=== PATIENT | female | born 1970 | race American Indian/Alaskan Native ===

== ENCOUNTER 2017-01-06 20:41 | Emergency (ER) | payer BC ==
[2017-01-06 22:23] VITALS: BP 148/96
--- NOTE | 2017-01-06 22:58 | Emergency Department Report ---
HPI - General Chief Complaint: Pain General Time Seen by Provider: 01/06/17 22:11 - HPI HPI: The patient's for 46 yo female whom presents for evaluation of mental health. The patient states that she has experienced progressive sadness sleep disturbance for the past 3 months. For the past one day she reports severe and constant sadness, and associated with tearfulness and concentration difficulty. The patient denies fever, headache, unexplained weight loss or weight gain, heat or cold intolerance, skin, hair, or nail changes, neuro deficits, suicidal ideation, homicidal ideations, or auditory or visual hallucinations. ED Past Medical Hx - Past Medical History Previous Medical History?: Yes Hx Asthma: Yes Additional medical history: uterine cyst - Surgical History Past Surgical History?: Yes Additional Surgical History: Partial hysterectomy - Social History Smoking Status: Never Smoker Substance Use Type: Alcohol - Medications Home Medications: Home Medications Medication Instructions Recorded Confirmed Last Taken Type Amoxicillin/K Clav Tab [Augmentin 1 tab PO BID #20 tablet 04/20/14 Unknown Rx 875MG] HYDROcodone/APAP 7.5-325 [[place] 1 each PO Q6HR PRN #20 tablet 04/20/14 Unknown Rx 7.5/325 mg] Ibuprofen [Motrin] 600 mg PO Q8H PRN #50 tablet 04/20/14 Unknown Rx Loratadine [Claritin] 10 mg PO DAILY #30 tablet 04/20/14 Unknown Rx predniSONE [Deltasone] 50 mg PO QDAY #5 tab 04/20/14 Unknown Rx Acetaminophen/Codeine 1 tab PO Q6H PRN #12 tab 09/25/14 Unknown Rx [Acetaminophen-Codeine #3 TAB] Ondansetron [Zofran Odt] 4 mg PO Q6H #10 tab.rapdis 09/25/14 Unknown Rx predniSONE [Deltasone] 20 mg PO QDAY #4 tab 09/04/15 Unknown Rx Clindamycin [Clindamycin CAP] 600 mg PO BID #14 capsule 05/23/16 Unknown Rx traMADol [Ultram] 50 mg PO Q6HR PRN #20 tablet 05/23/16 Unknown Rx ED Review of Systems ROS: Stated complaint: STRESS Other details as noted in HPI Constitutional: denies: fever ENT: denies: throat or neck pain Respiratory: denies: cough, shortness of breath Cardiovascular: denies: chest pain Endocrine: denies unexplained weight loss or gain Gastrointestinal: denies: abdominal pain, nausea Genitourinary: denies: dysuria Musculoskeletal: denies: leg swelling Skin: denies: rash Neurological: denies: headache Hematological/Lymphatic: denies: easy bleeding or easy bruising Psych: reports sadness/insomnia Physical Exam - Physical Exam Vital Signs: Vital Signs 01/06/17 01/06/17 21:55 22:24 Temperature 98.0 F Pulse Rate 96 H Respiratory 18 18 Rate Blood Pressure 148/96 O2 Sat by Pulse 98 Oximetry Physical Exam: General: well-nourished, well-developed, no acute distress Head: Normocephalic, atraumatic Eyes: normal sclera ENT: Mucous membranes are pink and moist Neck: trachea midline, neck supple, No neck stiffness, no cervical adenopathy Respiratory: Breath sounds equal bilaterally, no wheezing, rales, or rhonchi Cardio: S1 and S2 present, no murmurs, rubs, gallops, capillary refill is brisk Abdomen: Normoactive bowel sounds, soft abdomen, no tenderness Musc: No pitting edema Skin: No rash Neuro: no facial drooping, normal speech Psych: Depressed mood, patient tearful, normal affect, normal insight, no cognitive deficits, no hallucinations ED Course Vital Signs 01/06/17 01/06/17 21:55 22:24 Temperature 98.0 F Pulse Rate 96 H Respiratory 18 18 Rate Blood Pressure 148/96 O2 Sat by Pulse 98 Oximetry ED Medical Decision Making - Lab Data Result diagrams: 01/06/17 22:48 01/06/17 22:48 - Medical Decision Making The patient was seen and examined by myself. The patient is placed on a monitoring engineer and continuous pulse ox. On initial evaluation, the patient was found to be in no distress. Labs are obtained. Lab results are grossly unremarkable. The patient is medically clear. Mental health is consulted. Mental health evaluates the patient and agrees that the patient negative for any findings concerning for risk of harm to herself or others. The patient is given resources for treatment of her depression. The patient is stable for discharge with outpatient follow-up. The patient is given follow-up and return instructions. The patient expressed understanding and agreed with the plan. The patient is discharged in stable condition. Critical care attestation.: If time is entered above; I have spent that time in minutes in the direct care of this critically ill patient, excluding procedure time. ED Disposition Clinical Impression: Depressed Qualifiers: Depression Type: unspecified Qualified Code(s): F32.9 - Major depressive disorder, single episode, unspecified Disposition: DISCHARGED TO HOME OR SELFCARE Is pt being admited?: No Does the pt Need Aspirin: No Condition: Stable Instructions: Mood Disorders (ED), Depression (ED), Suicide Prevention for Adults (ED) Referrals: PRIMARY CARE, [Primary Care Provider] - 3-5 Days [facility] [Outside] - 3-5 Days Time of Disposition: 22:57
[2017-01-06 23:04] LABS: Hematocrit 40.4 % (30.3-42.9); Hemoglobin 13.3 gm/dl (10.1-14.3); Mean Corpuscular HGB Conc 33 % (30-34); Mean Corpuscular Hemoglobin 32 pg (28-32); Mean Corpuscular Volume 97 fl (79-97); Platelet Count 191 K/mm3 (140-440); Red Blood Count 4.18 M/mm3 (3.65-5.03); Red Cell Distribution Width 13.3 % (13.2-15.2); White Blood Count 5.1 K/mm3 (4.5-11.0)
[2017-01-06 23:25] LABS: Anion Gap 21 mmol/L; BUN/Creatinine Ratio 12.22; Blood Urea Nitrogen 11 mg/dL (7-17); Calcium 8.8 mg/dL (8.4-10.2); Carbon Dioxide 21 mmol/L (22-30); Chloride 99.6 mmol/L (98-107); Glucose 101 mg/dL (65-100); Potassium 3.6 mmol/L (3.6-5.0); Sodium 138 mmol/L (137-145)
[2017-01-06 23:42] LABS: Urine Drugs of Abuse Note Disclamer
== END 2017-01-07 00:58 | disposition home or self-care (01) ==
LOC: EEVIPCON 20:41 → ED 20:41
DX: F32.9 Major depressive disorder, single episode, unspecified (principal); J45.909 Unspecified asthma, uncomplicated
CPT/HCPCS: 36415; 80048; 80307; 84439; 84443; 84703; 85027; 99283; G0480; 80320

== ENCOUNTER 2017-02-24 07:12 | Emergency (ER) | payer BC ==
[2017-02-24 07:33] VITALS: BP 157/85
--- NOTE | 2017-02-24 08:35 | Emergency Department Report ---
HPI - General Chief Complaint: Extremity Injury, Upper Time Seen by Provider: 02/24/17 08:20 - HPI HPI: This is a 46-year-old female presents to the ED complaining of left shoulder back forearm pain 1 month. She said about a month ago she was lifting a heavy patient and fell she injured her arm patient states during that time she had intermittent 10 throbbing, aching type pain on her back showed her to forearm. Patient states she has an appointment with Dr. Miner her primary care doctor on the because she was evidence pain with movement. She denies fevers/chills/nausea/vomiting/recent trauma to the arms/S of breath/ chest pain/headache. ED Past Medical Hx - Past Medical History Previous Medical History?: Yes Hx Asthma: Yes Additional medical history: uterine cyst - Surgical History Past Surgical History?: Yes Additional Surgical History: Partial hysterectomy - Social History Smoking Status: Current Every Day Smoker Substance Use Type: Alcohol, Prescribed - Medications Home Medications: Home Medications Medication Instructions Recorded Confirmed Last Taken Type Cyclobenzaprine [Flexeril] 10 mg PO QHS PRN #30 tablet 02/24/17 Unknown Rx Naproxen [Naprosyn] 500 mg PO BID #30 tablet 02/24/17 Unknown Rx ED Review of Systems ROS: Stated complaint: LFT ARM PAIN Other details as noted in HPI Constitutional: denies: chills, fever Eyes: denies: eye pain, eye discharge, vision change ENT: denies: ear pain, throat pain Respiratory: denies: cough, shortness of breath, wheezing Cardiovascular: denies: chest pain, palpitations Endocrine: no symptoms reported Gastrointestinal: denies: abdominal pain, nausea, diarrhea Genitourinary: denies: urgency, dysuria, discharge Musculoskeletal: denies: back pain, joint swelling, arthralgia Skin: denies: rash, lesions Neurological: denies: headache, weakness, paresthesias Psychiatric: denies: anxiety, depression Hematological/Lymphatic: denies: easy bleeding, easy bruising Physical Exam - Physical Exam Vital Signs: Vital Signs 02/24/17 07:29 Temperature 98.3 F Pulse Rate 82 Respiratory 18 Rate Blood Pressure 157/85 O2 Sat by Pulse 100 Oximetry Physical Exam: GENERAL: Alert and oriented x3, no apparent distress, Normal Gait, atraumatic. HEAD: Head is normocephalic and a-traumatic. NECK: Supple. Non edematous, No carotid bruits. No lymphadenopathy or thyromegaly. No C-spine tenderness LUNGS: Symetrical with respiration, No wheezing, no rales or crackles, CTAB. HEART: S1, S2 present, regular rate and rhythm without murmur, no rubs, no gallops. ABDOMEN: No organomegaly was noted,Positive bowel sounds, soft, and non- distended. . Nontender to palpation on all Quadrants, NO CVA tenderness. EXTREMITIES/MUSCULOSKELETAL: No cyanosis, clubbing, rash, lesions or edema. Full ROM bilaterally. UE Pulses 2+ bilaterally. UE 5+ strength bilaterally, tenderness to palpation of the left trapezius muscle. Full range of motion of the left shoulder and arm. NEUROLOGIC: No focal Deficit, Cranial nerves II through XII are grossly intact. No loss of sensation, PSYCHIATRIC: Mood is congruent with affect, denies suicidal or homicidal ideations. SKIN: Warm and dry, No lesions, No ulceration or induration present. ED Course Vital Signs 02/24/17 07:29 Temperature 98.3 F Pulse Rate 82 Respiratory 18 Rate Blood Pressure 157/85 O2 Sat by Pulse 100 Oximetry ED Medical Decision Making - Medical Decision Making 46-year-old female presents to ED with shoulder strain ED course: Discussed the patient proper rest and heat therapy to shoulder that muscle. Discussed with patient no fracture or dislocation noted. Discussed the patient to keep appointment with Dr. Miner. Discussed to take muscle relaxants and discussed drowsy drowsy effect. Vital signs are normal patient is in no acute or respiratory distress. Patient states she understands and will comply to follow up Critical care attestation.: If time is entered above; I have spent that time in minutes in the direct care of this critically ill patient, excluding procedure time. ED Disposition Clinical Impression: Strain of left shoulder Qualifiers: Encounter type: initial encounter Qualified Code(s): S46.912A - Strain of unspecified muscle, fascia and tendon at shoulder and upper arm level, left arm , initial encounter Disposition: DISCHARGED TO HOME OR SELFCARE Is pt being admited?: No Does the pt Need Aspirin: No Condition: Stable Instructions: Trigger Point Pain (ED), Musculoskeletal Pain (ED), Heat Pack Application (ED) Prescriptions: Cyclobenzaprine [Flexeril] 10 mg PO QHS PRN #30 tablet PRN Reason: Muscle Spasm Naproxen [Naprosyn] 500 mg PO BID #30 tablet Referrals: PRIMARY CARE, [Primary Care Provider] - 3-5 Days Forms: Accompanied Note, Work/School Release Form(ED) Time of Disposition: 09:05
== END 2017-02-24 09:31 | disposition home or self-care (01) ==
LOC: ED 07:12
DX: S46.912A Strain of unspecified muscle, fascia and tendon at shoulder and upper arm level, left arm, initial encounter (principal); J45.909 Unspecified asthma, uncomplicated; F17.200 Nicotine dependence, unspecified, uncomplicated; X50.0XXA Overexertion from strenuous movement or load, initial encounter; Y93.89 Activity, other specified; Y99.9 Unspecified external cause status; Y92.89 Other specified places as the place of occurrence of the external cause
CPT/HCPCS: 99282

== ENCOUNTER 2017-06-09 00:31 | Emergency (ER) | payer BC ==
[2017-06-09 01:22] VITALS: BP 130/79
[2017-06-09] MEDS ORDERED: ZOFRAN ONE (01:58)
[2017-06-09] MEDS ORDERED: MORPHINE ONE (01:59)
--- NOTE | 2017-06-09 02:00 | XRay Report ---
FINAL REPORT PROCEDURE: XR ANKLE 3+V LT TECHNIQUE: LEFT ankle radiographs, AP, lateral, and oblique views. CPT 55660 HISTORY: Left ankle swollen after fall COMPARISON: No prior studies are available for comparison. FINDINGS: Fracture (s) and/or Dislocation(s): There is an oblique fracture through the distal fibula. The remaining osseous structures appear intact.. Alignment: Normal. Joint space(s): Normal. Soft tissues: Mild soft tissue swelling. Bone mineralization: Normal. Foreign bodies: None. Calcaneal spurring: Small inferior calcaneal spur. IMPRESSION: Slightly impacted oblique fracture through the distal fibula. There is associated mild soft tissue swelling..
--- NOTE | 2017-06-09 02:05 | XRay Report ---
FINAL REPORT PROCEDURE: XR FOOT 3+V LT TECHNIQUE: LEFT foot radiographs, AP, lateral, and oblique views. CPT 62711 HISTORY: Left ankle/foot swollen after fall COMPARISON: No prior studies are available for comparison. FINDINGS: Fracture (s) and/or Dislocation(s): There is a impacted oblique fracture through the distal fibula. The remaining osseous structures are intact without fracture or dislocation.. Alignment: Normal . Joint space(s): Normal . Soft tissues: Mild soft tissue swelling over the ankle.. Bone mineralization: Normal . Foreign bodies: None . Calcaneal spurring: Small inferior calcaneal spur. IMPRESSION: Impacted oblique fracture through the distal fibula. There is associated soft tissue swelling. The remaining osseous structures are intact..
[2017-06-09] MEDS ORDERED: ZOFRAN IV ONE (02:38)
[2017-06-09] MEDS ORDERED: MORPHINE IV ONE ×2 (02:38→03:45)
[2017-06-09] MEDS ORDERED: NORCO 10/325 PO ONE (03:17)
[2017-06-09] MEDS ORDERED: FLEXERIL PO ONE (03:18)
--- NOTE | 2017-06-09 03:20 | Emergency Department Report ---
ED Lower Extremity HPI - General Chief Complaint: Extremity Injury, Lower Stated Complaint: LT ANKLE INJURY Source: patient, EMS Mode of arrival: Stretcher Limitations: No Limitations - History of Present Illness Initial Comments: 46 year old female presents to ED with left sided ankle pain after mechanical fall. patient is stable, neurologically intact and in no acute distress. MD Complaint: ankle injury -: Sudden Injury: Ankle: Left Place: home Severity: moderate Worsens With: weight bearing, movement Context: fall Associated Symptoms: swelling, unable to bear weight. denies: numbness, tingling - Related Data Previous Rx's Medication Instructions Recorded Last Taken Type Cyclobenzaprine [Flexeril] 10 mg PO QHS PRN #30 tablet 02/24/17 Unknown Rx Naproxen [Naprosyn] 500 mg PO BID #30 tablet 02/24/17 Unknown Rx HYDROcodone/APAP 5-325 [[place] 1 each PO Q6HR #20 tablet 06/09/17 Unknown Rx 5/325] Ibuprofen [Motrin] 800 mg PO Q8HR #15 tablet 06/09/17 Unknown Rx methOCARBAMOL [Robaxin TAB] 500 mg PO TID #15 tab 06/09/17 Unknown Rx Allergies Allergy/AdvReac Type Severity Reaction Status Date / Time erythromycin base Allergy Rash Verified 02/24/17 07:27 tramadol Allergy Rash Verified 02/24/17 07:27 ED Review of Systems ROS: Stated complaint: LT ANKLE INJURY Other details as noted in HPI Constitutional: denies: chills, fever Eyes: denies: eye pain, eye discharge, vision change ENT: denies: ear pain, throat pain Respiratory: denies: cough, shortness of breath, wheezing Cardiovascular: denies: chest pain, palpitations Endocrine: no symptoms reported Gastrointestinal: denies: abdominal pain, nausea, diarrhea Genitourinary: denies: urgency, dysuria, discharge Musculoskeletal: joint swelling, arthralgia. denies: back pain Skin: denies: rash, lesions Neurological: denies: headache, weakness, numbness, paresthesias, confusion, vertigo Psychiatric: denies: anxiety, depression Hematological/Lymphatic: denies: easy bleeding, easy bruising ED Past Medical Hx - Past Medical History Previous Medical History?: Yes Hx Asthma: Yes Additional medical history: uterine cyst - Surgical History Additional Surgical History: Partial hysterectomy - Social History Smoking Status: Current Some Day Smoker - Medications Home Medications: Home Medications Medication Instructions Recorded Confirmed Last Taken Type Cyclobenzaprine [Flexeril] 10 mg PO QHS PRN #30 tablet 02/24/17 Unknown Rx Naproxen [Naprosyn] 500 mg PO BID #30 tablet 02/24/17 Unknown Rx HYDROcodone/APAP 5-325 [[place] 1 each PO Q6HR #20 tablet 06/09/17 Unknown Rx 5/325] Ibuprofen [Motrin] 800 mg PO Q8HR #15 tablet 06/09/17 Unknown Rx methOCARBAMOL [Robaxin TAB] 500 mg PO TID #15 tab 06/09/17 Unknown Rx ED Physical Exam - General Limitations: No Limitations General appearance: alert, in no apparent distress - Head Head exam: Present: atraumatic, normocephalic - Eye Eye exam: Present: normal appearance - ENT ENT exam: Present: mucous membranes moist - Neck Neck exam: Present: normal inspection - Respiratory Respiratory exam: Present: normal lung sounds bilaterally. Absent: respiratory distress, wheezes - Cardiovascular Cardiovascular Exam: Present: regular rate, normal rhythm. Absent: systolic murmur, diastolic murmur, rubs, gallop - GI/Abdominal GI/Abdominal exam: Present: soft, normal bowel sounds. Absent: distended, tenderness, guarding - Extremities Exam Extremities exam: Present: normal inspection - Expanded Lower Extremity Exam Left Hip exam: Present: normal inspection, full ROM Upper Leg exam: Present: normal inspection, full ROM Knee exam: Present: normal inspection, full ROM Lower Leg exam: Present: tenderness (distal) Ankle exam: Present: tenderness, swelling Foot/Toe exam: Present: tenderness Neuro vascular tendon exam: Present: no vascular compromise. Absent: abnormal cap refill Gait: Positive: unable to bear weight - Back Exam Back exam: Present: normal inspection. Absent: tenderness - Neurological Exam Neurological exam: Present: alert, oriented X3 - Psychiatric Psychiatric exam: Present: normal affect, normal mood - Skin Skin exam: Present: warm, dry, intact, normal color. Absent: rash ED Course Vital Signs 06/09/17 01:17 Temperature 98.6 F Pulse Rate 79 Respiratory 18 Rate Blood Pressure 130/79 O2 Sat by Pulse 99 Oximetry ED Lower Extremity MDM - Radiology Data Radiology results: report reviewed XR left ankle/foot Impacted oblique fracture through the distal fibula. There is associated soft tissue swelling. The remaining osseous structures are intact. - Medical Decision Making 46 year old female presents to ED with left ankle pain. patient has xray positive for distal fibula fracture. patient has been medicated with pain medication and short leg ankle splint applied. patient understands and agrees to follow up with Dr. Corrigan tomorrow once his office opens. Critical care attestation.: If time is entered above; I have spent that time in minutes in the direct care of this critically ill patient, excluding procedure time. ED Disposition Clinical Impression: Ankle fracture, left Qualifiers: Encounter type: initial encounter Fracture type: closed Qualified Code(s): S82.892A - Other fracture of left lower leg, initial encounter for closed fracture Disposition: - TO HOME OR SELFCARE Is pt being admited?: No Does the pt Need Aspirin: No Condition: Stable Instructions: Ankle Fracture (ED) Prescriptions: HYDROcodone/APAP 5-325 [[place] 5/325] 1 each PO Q6HR #20 tablet Ibuprofen [Motrin] 800 mg PO Q8HR #15 tablet methOCARBAMOL [Robaxin TAB] 500 mg PO TID #15 tab Referrals: HOMA CORRIGAN MD [Staff Physician] - 24 Hours Forms: Work/School Release Form(ED)
[2017-06-09] MEDS ORDERED: NORCO 10/325 ONE (04:39)
[2017-06-09] MEDS ORDERED: FLEXERIL ONE (04:39)
== END 2017-06-09 04:15 | disposition home or self-care (01) ==
LOC: EEVIPCON 00:31 → ED 00:31
DX: S82.892A Other fracture of left lower leg, initial encounter for closed fracture (principal); J45.909 Unspecified asthma, uncomplicated; F17.200 Nicotine dependence, unspecified, uncomplicated; Z90.711 Acquired absence of uterus with remaining cervical stump; Z88.8 Allergy status to other drugs, medicaments and biological substances; W18.39XA Other fall on same level, initial encounter; Y93.89 Activity, other specified; Y99.8 Other external cause status; Y92.89 Other specified places as the place of occurrence of the external cause
CPT/HCPCS: 29515; 73610; 73630; 96374; 96375; 96376; 99284; J2270; J2405

== ENCOUNTER 2017-07-08 14:23 | Outpatient (CLI) | payer BC ==
--- NOTE | 2017-07-08 16:00 | XRay Report ---
Left ankle: Trauma, pain. There is generalized swelling of the soft tissues of the distal leg extending into the proximal foot. The swelling is primarily laterally. There is no black fracture through the distal shaft of the fibula with slight offset and separation. The tibiotalar alignment and joint appear unremarkable. Impression: Fibula fracture.
== END 2017-07-08 14:24 | disposition home or self-care (01) ==
LOC: XRAY 14:23
PROVIDERS: ATTEND Orthopaedic Surgery
DX: S82.402A Unspecified fracture of shaft of left fibula, initial encounter for closed fracture (principal); J45.909 Unspecified asthma, uncomplicated; F17.200 Nicotine dependence, unspecified, uncomplicated; X58.XXXA Exposure to other specified factors, initial encounter; Y93.89 Activity, other specified; Y92.89 Other specified places as the place of occurrence of the external cause; Y99.8 Other external cause status

== ENCOUNTER 2017-07-20 12:56 | Emergency (ER) | payer BC ==
[2017-07-20 13:24] VITALS: BP 131/89
--- NOTE | 2017-07-20 14:29 | Emergency Department Report ---
ED Lower Extremity HPI - General Chief Complaint: Extremity Injury, Lower Stated Complaint: ANKLE PAIN Time Seen by Provider: 07/20/17 13:39 Source: patient, family Mode of arrival: Wheelchair Limitations: Physical Limitation - History of Present Illness Initial Comments: This is a 47-year-old female nontoxic, well nourished in appearance, no acute signs of distress presents to the ED complaining of left ankle pain. Patient stated on 07/29/2017 patient was diagnosed with a fibular fracture and received a splint in the ED and then follow-up with Dr. Corrigan which he put on a hard cast. Patient states weeks ago but Shekhar has removed cast and patient still having pain. Patient presents to the ED if she is still in pain and wants pain control. Patient denies any new trauma to the region. Denies any swelling, numbness, tingling, fever, chills, nausea, vomiting chest pain and shortness of breath. Patient stated she still has pain while ambulating. Patient denies decreased range of motion. Patient states allergies to erythromycin and tramadol. Past medical history includes asthma. MD Complaint: leg injury (hx of fibula fracture) -: Gradual, month(s) (1) Injury: Leg: Left Severity: mild Severity scale (0 -10): 6 Improves With: nothing Worsens With: nothing Context: fall Associated Symptoms: able to partially bear weight, ambulatory. denies: snap/ pop sensation, swelling, numbness, tingling, unable to bear weight - Related Data Previous Rx's Medication Instructions Recorded Last Taken Type Cyclobenzaprine [Flexeril] 10 mg PO QHS PRN #30 tablet 02/24/17 Unknown Rx Naproxen [Naprosyn] 500 mg PO BID #30 tablet 02/24/17 Unknown Rx HYDROcodone/APAP 5-325 [[place] 1 each PO Q6HR #20 tablet 06/09/17 Unknown Rx 5/325] Ibuprofen [Motrin] 800 mg PO Q8HR #15 tablet 06/09/17 Unknown Rx methOCARBAMOL [Robaxin TAB] 500 mg PO TID #15 tab 06/09/17 Unknown Rx Ibuprofen [Motrin 600 MG tab] 600 mg PO Q8H PRN #30 tablet 07/20/17 Unknown Rx Allergies Allergy/AdvReac Type Severity Reaction Status Date / Time erythromycin base Allergy Rash Verified 02/24/17 07:27 tramadol Allergy Rash Verified 02/24/17 07:27 ED Review of Systems ROS: Stated complaint: ANKLE PAIN Other details as noted in HPI Constitutional: denies: chills, fever Eyes: denies: eye pain, eye discharge, vision change ENT: denies: ear pain, throat pain Respiratory: denies: cough, shortness of breath, wheezing Cardiovascular: denies: chest pain, palpitations Endocrine: no symptoms reported Gastrointestinal: denies: abdominal pain, nausea, diarrhea Genitourinary: denies: urgency, dysuria, discharge Musculoskeletal: denies: back pain, joint swelling, arthralgia Skin: denies: rash, lesions Neurological: denies: headache, weakness, paresthesias Psychiatric: denies: anxiety, depression Hematological/Lymphatic: denies: easy bleeding, easy bruising ED Past Medical Hx - Past Medical History Previous Medical History?: Yes Hx Asthma: Yes Additional medical history: uterine cyst, Left ankle injury - Surgical History Past Surgical History?: Yes Additional Surgical History: Partial hysterectomy - Social History Smoking Status: Never Smoker Substance Use Type: Alcohol, Prescribed - Medications Home Medications: Home Medications Medication Instructions Recorded Confirmed Last Taken Type Cyclobenzaprine [Flexeril] 10 mg PO QHS PRN #30 tablet 02/24/17 Unknown Rx Naproxen [Naprosyn] 500 mg PO BID #30 tablet 02/24/17 Unknown Rx HYDROcodone/APAP 5-325 [[place] 1 each PO Q6HR #20 tablet 06/09/17 Unknown Rx 5/325] Ibuprofen [Motrin] 800 mg PO Q8HR #15 tablet 06/09/17 Unknown Rx methOCARBAMOL [Robaxin TAB] 500 mg PO TID #15 tab 06/09/17 Unknown Rx Ibuprofen [Motrin 600 MG tab] 600 mg PO Q8H PRN #30 tablet 07/20/17 Unknown Rx ED Physical Exam - General Limitations: Physical Limitation General appearance: alert, in no apparent distress - Head Head exam: Present: atraumatic, normocephalic, normal inspection - Eye Eye exam: Present: normal appearance, PERRL, EOMI. Absent: scleral icterus, conjunctival injection, nystagmus, periorbital swelling, periorbital tenderness Pupils: Present: normal accommodation - ENT ENT exam: Present: normal exam, normal orophraynx, mucous membranes moist, TM's normal bilaterally, normal external ear exam - Neck Neck exam: Present: normal inspection, full ROM. Absent: tenderness, meningismus, lymphadenopathy, thyromegaly - Respiratory Respiratory exam: Present: normal lung sounds bilaterally. Absent: respiratory distress, wheezes, rales, rhonchi, stridor, chest wall tenderness, accessory muscle use, decreased breath sounds, prolonged expiratory - Cardiovascular Cardiovascular Exam: Present: regular rate, normal rhythm, normal heart sounds. Absent: systolic murmur, diastolic murmur, rubs, gallop - GI/Abdominal GI/Abdominal exam: Present: soft, normal bowel sounds. Absent: distended, tenderness, guarding, rebound, rigid, diminished bowel sounds - Rectal Rectal exam: Present: deferred - Extremities Exam Extremities exam: Present: normal inspection, full ROM, tenderness, normal capillary refill. Absent: pedal edema, joint swelling, calf tenderness - Expanded Lower Extremity Exam Left Hip exam: Present: normal inspection, full ROM Upper Leg exam: Present: normal inspection, full ROM Knee exam: Present: normal inspection, full ROM Lower Leg exam: Present: normal inspection, full ROM, tenderness. Absent: swelling, abrasion, laceration, deformity, crepidus, dislocation, erythema, palpable cord, Erika's sign Ankle exam: Present: normal inspection, full ROM, tenderness. Absent: swelling , abrasion, laceration, ecchymosis, deformity, crepidus, dislocation, erythema, anterior draw sign Foot/Toe exam: Present: normal inspection, full ROM. Absent: tenderness, swelling, abrasion, laceration, ecchymosis, deformity, crepidus, dislocation, erythema, amputation, puncture wound, foreign body, calcaneal tenderness, tenderness at base of 5th metatarsal, nail avulsion, subungual hematoma Neuro vascular tendon exam: Present: no vascular compromise. Absent: pulse deficit, abnormal cap refill, motor deficit, sensory deficit, tendon deficit, extremity cold to touch, pallor, abnormal 2-point discrimination, decreased fine /light touch, foot drop, peroneal nerve deficit, significant pain with passive ROM of distal joint Gait: Positive: observed and limited by pain - Back Exam Back exam: Present: normal inspection, full ROM. Absent: tenderness, CVA tenderness (R), CVA tenderness (L), muscle spasm, paraspinal tenderness, vertebral tenderness, rash noted - Neurological Exam Neurological exam: Present: alert, oriented X3, CN II-XII intact, normal gait, reflexes normal - Psychiatric Psychiatric exam: Present: normal affect, normal mood - Skin Skin exam: Present: warm, dry, intact, normal color. Absent: rash ED Course Vital Signs 07/20/17 07/20/17 13:19 14:40 Temperature 98.3 F 98.7 F Pulse Rate 92 H 89 Respiratory 16 20 Rate Blood Pressure 131/89 O2 Sat by Pulse 100 100 Oximetry - Reevaluation(s) Reevaluation #1: 07/20/17 14:32 Patient is speaking in full sentences with no signs of distress noted. Reevaluation #2: 07/20/17 16:10 Patient has been notified that I spoke to Dr. Corrigan and educated her and instructed her on the plan of care and discharge. - Consultations Consultation #1: 07/20/17 16:08 Dr. Corrigan has been consulted about patient xray results and stated he is aware of patient and stated he ordered cam ankle shoe but patient has stated she has not yet received it. Patient stated she is in the process of getting it done. I notified Dr. Corrigan if ankle stirrup is appropriate plan of care and discharged with crutches and said it is a appropriate plan of care and stated he does not want patient to be splinted again. ED Lower Extremity MDM - Medical Decision Making Fibular fracture. Patient is requesting for pain control. X-ray has obtained. Dictated by Radiologist with an old fracture of the fibula. Patient states that she did received hard cast by Dr. Corrigan in which it was removed by him as well. Patient came in with crutches. Patient received a Velcro ankle stirrup in the ED. Patient was instructed to follow-up with Dr. Corrigan in 3-5 days or if symptoms worsen and continue with its emergency room as soon as possible. [facility] indicates that Dr. Corrigan has prescribed her 30 of [place]. I instructed that patient has received it by Dr. Corrigan with enough that should last for couple of more days so she can f/u with him. Patient agrees to the plan of care and patient received Motrin in the ED as well as d/c. At time time of discharge, the patient does not seem toxic or ill in appearance. No acute signs of distress noted. Patient agrees to discharge treatment plan of care. No further questions noted by the patient. Critical care attestation.: If time is entered above; I have spent that time in minutes in the direct care of this critically ill patient, excluding procedure time. ED Disposition Clinical Impression: Fibula fracture Qualifiers: Encounter type: initial encounter Fibula location: lateral malleolus Fracture type: closed Fracture alignment: displaced Laterality: left Qualified Code(s): S82.62XA - Displaced fracture of lateral malleolus of left fibula, initial encounter for closed fracture Disposition: TO HOME OR SELFCARE Is pt being admited?: No Does the pt Need Aspirin: No Condition: Stable Instructions: Ibuprofen (By mouth), Crutch Instructions (ED), Leg Fracture (ED) , RICE Therapy (ED) Additional Instructions: Follow-up with Dr. Corrigan or another Orthopedic doctor in 3-5 days or if symptoms worsen and continue return to emergency room as soon as possible possible. Prescriptions: Ibuprofen [Motrin 600 MG tab] 600 mg PO Q8H PRN #30 tablet PRN Reason: Pain Referrals: PRIMARY CAREMD [Primary Care Provider] - 3-5 Days HOMA CORRIGAN MD [Staff Physician] - 3-5 Days [facility] [Outside] - 3-5 Days [facility] [Outside] - 3-5 Days
[2017-07-20] MEDS ORDERED: MOTRIN PO ONE (14:46)
--- NOTE | 2017-07-20 15:54 | XRay Report ---
FINAL REPORT PROCEDURE: XR ANKLE 3+V LT TECHNIQUE: Three views of the left ankle are obtained HISTORY: left ankle injury pain swelling COMPARISON: X-ray dated June 09, 2017 FINDINGS: There is a mildly displaced lateral malleolus fracture. It is unchanged since prior study. No widening of the ankle mortise is seen. Soft tissue swelling is seen in the ankle. Moderate size calcaneal plantar spur is seen. IMPRESSION: Mildly displaced lateral malleolus fracture is seen. No interval healing is seen.
== END 2017-07-20 16:24 | disposition home or self-care (01) ==
LOC: ED 12:56
DX: S82.62XG Displaced fracture of lateral malleolus of left fibula, subsequent encounter for closed fracture with delayed healing (principal); J45.909 Unspecified asthma, uncomplicated; Z88.8 Allergy status to other drugs, medicaments and biological substances; X58.XXXA Exposure to other specified factors, initial encounter; Y93.89 Activity, other specified; Y92.89 Other specified places as the place of occurrence of the external cause; Y99.8 Other external cause status

== ENCOUNTER 2017-11-26 03:53 | Emergency (ER) | payer BC ==
[2017-11-26 04:13] VITALS: BP 124/76
[2017-11-26] MEDS ORDERED: ULTRAM ONE (04:35)
[2017-11-26] MEDS ORDERED: ULTRAM PO ONE (04:47)
--- NOTE | 2017-11-26 05:24 | Emergency Department Report ---
HPI - General Chief Complaint: Extremity Problem,Nontraumatic Time Seen by Provider: 11/26/17 05:18 - HPI HPI: Patient is a 47-year-old female with no prior medical history who presents to ED complaining of continuous ankle pain from her ankle surgery in July of last day. 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 Patient states she is on her feet most of the day and doesn't think her ankle is healing appropriately. Patient states the left ankle is throbbing and aching and causing her his discomfort. Patient states that she had a fractured ankle that happened in May 2017 which was later operated on in July 2017. Patient states she has not had any re-injuries to the ankle. She denies fever/ chills/ nausea/vomiting/calf pain/shortness of breath/chest pain ED Past Medical Hx - Past Medical History Previous Medical History?: Yes Hx Hypertension: No Hx Asthma: Yes Hx HIV: No Additional medical history: uterine cyst, Left ankle injury - Surgical History Past Surgical History?: Yes Additional Surgical History: Partial hysterectomy - Social History Smoking Status: Never Smoker Substance Use Type: None - Medications Home Medications: Home Medications Medication Instructions Recorded Confirmed Last Taken Type Ibuprofen [Motrin] 800 mg PO PRN PRN 08/11/17 08/19/17 08/15/17 History Multivit-Min/FA/Lycopen/Lutein 1 each PO DAILY 08/11/17 08/11/17 08/18/17 History [Centrum Silver Tablet] Cyclobenzaprine [Flexeril 10 MG 10 mg PO QHS PRN #30 tablet 11/26/17 Unknown Rx TAB] HYDROcodone/APAP 5-325 [[place] 1 each PO Q6H PRN #12 tablet 11/26/17 Unknown Rx 5-325 mg TAB] ED Review of Systems ROS: Stated complaint: LT ANKLE PAIN Other details as noted in HPI Constitutional: denies: chills, fever Eyes: denies: eye pain, eye discharge, vision change ENT: denies: ear pain, throat pain Respiratory: denies: cough, shortness of breath, wheezing Cardiovascular: denies: chest pain, palpitations Endocrine: no symptoms reported Gastrointestinal: denies: abdominal pain, nausea, diarrhea Genitourinary: denies: urgency, dysuria, discharge Musculoskeletal: arthralgia. denies: back pain, joint swelling Skin: denies: rash, lesions Neurological: denies: headache, weakness, paresthesias Psychiatric: denies: anxiety, depression Hematological/Lymphatic: denies: easy bleeding, easy bruising Physical Exam - Physical Exam Vital Signs: Vital Signs 11/26/17 04:06 Temperature 98.3 F Pulse Rate 81 Respiratory 14 Rate Blood Pressure 124/76 O2 Sat by Pulse 100 Oximetry Physical Exam: GENERAL: Alert and oriented x3, no apparent distress, Normal Gait, atraumatic. LUNGS: Symetrical with respiration, No wheezing, no rales or crackles, CTAB. HEART: S1, S2 present, regular rate and rhythm without murmur, no rubs, no gallops. Non tender to palpation EXTREMITIES/MUSCULOSKELETAL: No cyanosis, clubbing, rash, lesions or edema. Full ROM bilaterally. UE/LE Pulses 2+ bilaterally. LE and UE 5+ strength bilaterally, lateral aspect of the left knee tenderness to palpation. Non- erythematous, mildly swollen, full range of motion of the ankle. Patient embedded in the plantar flex her foot. NEUROLOGIC: The patient is cooperative with no focal neurologic deficits. . SKIN: Warm and dry, No lesions, No ulceration or induration present. 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 Discussed the patient continue to wear her brace as given by her orthopedic doctor. Discussed with patient to continue to apply warm compression tests of the ankle. Vital signs are normal. Patient is in no acute distress. Patient is able to walk on her ankle minimally with the ankle brace I discussed the patient surgeries on bone is to take along some tissue and patient would need rest of the ankle for proper healing I discussed the patient to keep following up with her orthopedic doctor. Critical care attestation.: If time is entered above; I have spent that time in minutes in the direct care of this critically ill patient, excluding procedure time. ED Disposition Clinical Impression: Ankle pain, left Qualifiers: Chronicity: chronic Qualified Code(s): M25.572 - Pain in left ankle and joints of left foot; G89.29 - Other chronic pain; G89.29 - Other chronic pain Arthralgia Qualifiers: Joint pain location: ankle Laterality: left Qualified Code(s): M25.572 - Pain in left ankle and joints of left foot Disposition: TO HOME OR SELFCARE Is pt being admited?: No Does the pt Need Aspirin: No Condition: Stable Instructions: Arthralgia (ED), Ankle Fracture (ED) Additional Instructions: Make sure to follow up with the primary care physician as discussed. Take all your medications as you've been prescribed. Do not take this 2 medications together. Take a Flexeril only at night. And take the other medications during the day. He may consider to take Motrin as prescribed for pain If you have any worsening symptoms or develop new symptoms please return to ED immediately. Prescriptions: Cyclobenzaprine [Flexeril 10 MG TAB] 10 mg PO QHS PRN #30 tablet PRN Reason: Muscle Spasm HYDROcodone/APAP 5-325 [[place] 5-325 mg TAB] 1 each PO Q6H PRN #12 tablet PRN Reason: Pain Referrals: PRIMARY CARE, [Primary Care Provider] - 3-5 Days IONA ALVAREZ MD [Referring] - 3-5 Days KEITH SANCHEZ [Staff Physician] - 3-5 Days GERMAN BOWMAN MD [Referring] - 3-5 Days BOZENA MELVIN MD, PHD [Referring] - 3-5 Days LYNNE RUFF MD [Referring] - 3-5 Days Forms: Accompanied Note, Work/School Release Form(ED) Time of Disposition: 05:57
[2017-11-26] MEDS ORDERED: NORCO 5/325 PO ONE (05:32)
== END 2017-11-26 06:15 | disposition home or self-care (01) ==
LOC: ED 03:53 → EEVIPCON 03:53 → ED 06:15
DX: M25.572 Pain in left ankle and joints of left foot (principal)
CPT/HCPCS: 99282

== ENCOUNTER 2018-02-16 10:24 | Outpatient (CLI) | payer BC ==
--- NOTE | 2018-02-16 12:17 | XRay Report ---
ROUTINE CHEST, TWO VIEWS: HISTORY: Emphysema. The trachea, heart, mediastinal contour, lung farrell and bony thorax are unremarkable. No significant findings of emphysema are appreciated. IMPRESSION: Unremarkable chest x-ray.
== END 2018-02-16 10:25 | disposition home or self-care (01) ==
LOC: XRAY 10:24
PROVIDERS: ATTEND Internal Medicine
DX: M25.419 Effusion, unspecified shoulder (principal)
CPT/HCPCS: 71046

== ENCOUNTER 2018-04-01 07:15 | Emergency (ER) | payer BC ==
[2018-04-01 07:24] VITALS: BP 145/84
== END 2018-04-01 08:10 | disposition left against medical advice (07) ==
LOC: ED 07:15
DX: M25.571 Pain in right ankle and joints of right foot (principal); F17.200 Nicotine dependence, unspecified, uncomplicated; Z88.1 Allergy status to other antibiotic agents; Z88.8 Allergy status to other drugs, medicaments and biological substances; Z53.21 Procedure and treatment not carried out due to patient leaving prior to being seen by health care provider

== ENCOUNTER 2019-03-29 06:59 | Emergency (ER) | payer BC ==
[2019-03-29 07:06] VITALS: BP 148/77
[2019-03-29] MEDS ORDERED: DECADRON IM ONE (08:00)
[2019-03-29] MEDS ORDERED: IBUPROFEN PO ONE (08:00)
[2019-03-29] MEDS ORDERED: FLEXERIL PO ONE (08:00)
--- NOTE | 2019-03-29 08:06 | Emergency Department Report ---
HPI - General Chief Complaint: Extremity Problem,Nontraumatic Time Seen by Provider: 03/29/19 07:22 - HPI HPI: Pt is a pleasant 48-year-old [place] who comes to the emergency room today complaining of left lower extremity pain radiating from her back down her left leg. She states that she has been having this pain for approximately 6 weeks. 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 At that time she didn't think much of it and went to Dr. Miner who gave her an injection and ibuprofen. However, with persistent lifting pushing and pulling the pain persist and is not getting any better. Vital signs are stable. The patient has no fever, no CVA tenderness, no spine tenderness, and no other trauma. ED Past Medical Hx - Past Medical History Previous Medical History?: Yes Hx Hypertension: No Hx Asthma: Yes Hx HIV: No Additional medical history: uterine cyst, Left ankle injury - Surgical History Past Surgical History?: Yes Additional Surgical History: Partial hysterectomy - Family History Family history: no significant - Social History Smoking Status: Current Every Day Smoker Substance Use Type: None - Medications Home Medications: Home Medications Medication Instructions Recorded Confirmed Last Taken Type Cyclobenzaprine [Flexeril] 10 mg PO TID PRN #10 tablet 03/29/19 Unknown Rx Ibuprofen [Motrin] 800 mg PO Q8HR PRN #25 tablet 03/29/19 Unknown Rx predniSONE [Deltasone] 20 mg PO DAILY #5 tablet 03/29/19 Unknown Rx ED Review of Systems ROS: Stated complaint: SCIATIC NERVE PAIN Other details as noted in HPI Comment: All other systems reviewed and negative Gastrointestinal: denies: abdominal pain, nausea, vomiting Genitourinary: denies: urgency, dysuria Musculoskeletal: as per HPI, back pain. denies: joint swelling, arthralgia, myalgia Physical Exam - Physical Exam Vital Signs: Vital Signs 03/29/19 07:05 Temperature 97.9 F Pulse Rate 73 Respiratory 16 Rate Blood Pressure 148/77 O2 Sat by Pulse 100 Oximetry Physical Exam: WDWN patient in NAD VS per RN flow sheet Alert and oriented to person, place and time. Ambulatory to ER S1-S2. No S3 or S4. No systolic or diastolic murmur. No JVD. No pitting edema. Lungs clear to auscultation bilaterally anteriorly and posteriorly. Abdomen soft nontender bowel sounds -4. Moves all extremities well. Positive LLE straight leg raise. NO CVA tenderness. No spine tenderness. No foot drop. No incontinence. Mood and affect appropriate. ED Course Vital Signs 03/29/19 07:05 Temperature 97.9 F Pulse Rate 73 Respiratory 16 Rate Blood Pressure 148/77 O2 Sat by Pulse 100 Oximetry ED Medical Decision Making - Medical Decision Making Patient has acute on chronic sciatica pain. She is ataxic in the hospital setting. I discussed with her how lifting pushing pulling and body mechanics effects sciatic-type syndromes. I've encouraged her to consult employee health given that an event that occurred approximately 6 weeks ago triggered this flare. The patient didn't think much of it at the time that her pain is now persisted. She was in the emergency room tearful with pain radiating down her left leg. There are no signs or symptoms of cauda equina. She has no point tenderness over her spine. She has no CVA tenderness. She has no fever. Further follow-up per employee health recommendations. She was medicated in the emergency room with Flexeril, Decadron and ibuprofen. Vital Signs 03/29/19 07:05 Temperature 97.9 F Pulse Rate 73 Respiratory 16 Rate Blood Pressure 148/77 O2 Sat by Pulse 100 Oximetry - Differential Diagnosis sciatica pain Critical care attestation.: If time is entered above; I have spent that time in minutes in the direct care of this critically ill patient, excluding procedure time. ED Disposition Clinical Impression: Sciatica Disposition: 07 PAT REG,NO TRIAGE Is pt being admited?: No Condition: Stable Instructions: Lumbar Radiculopathy (ED) Additional Instructions: DIET TOLERATED MEDS ORDERED TODAY IN ER FOLLOW INSTRUCTIONS ON THE BOTTLE FOLLOW UP WITH EMPLOYEE HEALTH TODAY ACTIVITY TOLERATED Referrals: FELIPA TRINIDAD MD [Primary Care Provider] - 3-5 Days Time of Disposition: 08:07
== END 2019-03-29 08:13 | disposition left against medical advice (07) ==
LOC: ED 06:59
DX: M54.42 Lumbago with sciatica, left side (principal); G89.29 Other chronic pain; J45.909 Unspecified asthma, uncomplicated; F17.200 Nicotine dependence, unspecified, uncomplicated; Z90.711 Acquired absence of uterus with remaining cervical stump; Z88.5 Allergy status to narcotic agent; Z88.1 Allergy status to other antibiotic agents
CPT/HCPCS: 96372; 99282; J1100

== ENCOUNTER 2019-12-28 06:44 | Emergency (ER) | payer SELFPAY ==
[2019-12-28 07:16] LABS: Basophils # (Auto) 0.1 K/mm3 (0.0-0.1); Basophils % (Auto) 1.1 % (0.0-1.8); Eosinophils # (Auto) 0.1 K/mm3 (0.0-0.4); Eosinophils % (Auto) 1.8 % (0.0-4.3); Hematocrit 41.4 % (30.3-42.9); Lymphocytes # (Auto) 2.7 K/mm3 (1.2-5.4); Lymphocytes % (Auto) 38.1 % (13.4-35.0); Mean Corpuscular HGB Conc 34 % (30-34); Mean Corpuscular Volume 98 fl (79-97); Monocytes # (Auto) 0.5 K/mm3 (0.0-0.8); Monocytes % (Auto) 6.8 % (0.0-7.3); Platelet Count 210 K/mm3 (140-440); Red Blood Count 4.21 M/mm3 (3.65-5.03); Red Cell Distribution Width 12.7 % (13.2-15.2)
[2019-12-28 07:40] LABS: Albumin 4.9 g/dL (3.9-5); BUN/Creatinine Ratio 20; Blood Urea Nitrogen 12 mg/dL (7-17); Calcium 9.7 mg/dL (8.4-10.2); Hemolysis Index 12
--- NOTE | 2019-12-28 07:52 | Ultrasound Report ---
ULTRASOUND ABDOMEN, LIMITED (RIGHT UPPER QUADRANT) INDICATION / CLINICAL INFORMATION: RUQ pain. COMPARISON: None available. FINDINGS: PANCREAS: Visualized portion shows no significant abnormality. LIVER: Liver is enlarged measuring 18.5 cm in length. The hepatic parenchyma is mildly heterogeneous and slightly echogenic. There are a few very small simple hepatic cysts noted. No solid mass. GALLBLADDER: No significant abnormality. No evidence of gallstones or gallbladder wall thickening. BILE DUCTS: No significant abnormality. Common bile duct measures 6 mm. FREE FLUID: None. ADDITIONAL FINDINGS: Right kidney is unremarkable. IMPRESSION: 1. Mild hepatomegaly with heterogeneous hepatic parenchyma. The appearance is nonspecific but indicat tomás of hepatocellular disease. 2. Normal appearance of the gallbladder, pancreas, and right kidney. Signer Name: Rosette Patel MD Signed: 12/28/2019 7:48 AM Workstation Name: [id number]
[2019-12-28 08:01] LABS: Alanine Aminotransferase < 5 units/L (7-56)
[2019-12-28 08:51] LABS: Bacteria,Urine 4+ /HPF (Negative); Bilirubin,Urine NEG (Negative); Blood,Urine NEG (Negative); Color,Urine Yellow (Yellow); Mucus,Urine 3+ /HPF; Protein,Urine <15 mg/dL mg/dL (Negative)
[2019-12-28] MEDS ORDERED: IBUPROFEN 600 MG TAB PO ONE (09:36)
[2019-12-28 09:38] VITALS: BP 160/79
--- NOTE | 2019-12-28 09:49 | Emergency Department Report ---
ED Abdominal Pain HPI - General Chief Complaint: Abdominal Pain Stated Complaint: VOMITING RT SIDE PAIN Time Seen by Provider: 12/28/19 08:57 Source: patient Mode of arrival: Ambulatory Limitations: No Limitations - History of Present Illness Severity scale (0 -10): 10 - Related Data Previous Rx's Medication Instructions Recorded Last Taken Type Cyclobenzaprine [Flexeril] 10 mg PO TID PRN #10 tablet 03/29/19 Unknown Rx Ibuprofen [Motrin] 800 mg PO Q8HR PRN #25 tablet 03/29/19 Unknown Rx predniSONE [Deltasone] 20 mg PO DAILY #5 tablet 03/29/19 Unknown Rx Amoxicillin [Amoxicillin TAB] 875 mg PO BID 7 Days #14 tablet 11/13/19 Unknown Rx predniSONE [Deltasone] 3 tab PO QDAY 4 Days #12 tab 11/13/19 Unknown Rx Nitrofurantoin [place]/M-Cryst 100 mg PO Q12HR 7 Days #14 capsule 12/28/19 Unknown Rx [Macrobid CAP] Allergies Allergy/AdvReac Type Severity Reaction Status Date / Time erythromycin base Allergy Rash Verified 02/24/17 07:27 tramadol Allergy Rash Verified 02/24/17 07:27 ED Review of Systems ROS: Stated complaint: VOMITING RT SIDE PAIN Other details as noted in HPI ED Past Medical Hx - Past Medical History Previous Medical History?: Yes Hx Hypertension: No Hx Asthma: No Hx HIV: No Additional medical history: Left ankle injury - Surgical History Past Surgical History?: Yes Additional Surgical History: Partial hysterectomy - Social History Smoking Status: Current Some Day Smoker Substance Use Type: Alcohol - Medications Home Medications: Home Medications Medication Instructions Recorded Confirmed Last Taken Type Cyclobenzaprine [Flexeril] 10 mg PO TID PRN #10 tablet 03/29/19 Unknown Rx Ibuprofen [Motrin] 800 mg PO Q8HR PRN #25 tablet 03/29/19 Unknown Rx predniSONE [Deltasone] 20 mg PO DAILY #5 tablet 03/29/19 Unknown Rx Amoxicillin [Amoxicillin TAB] 875 mg PO BID 7 Days #14 tablet 11/13/19 Unknown Rx predniSONE [Deltasone] 3 tab PO QDAY 4 Days #12 tab 11/13/19 Unknown Rx Nitrofurantoin [place]/M-Cryst 100 mg PO Q12HR 7 Days #14 capsule 12/28/19 Unknown Rx [Macrobid CAP] ED Physical Exam - General Limitations: No Limitations ED Medical Decision Making - Lab Data Result diagrams: 12/28/19 07:02 12/28/19 07:02 - Radiology Data Radiology results: report reviewed Patient: JACE AIKEN MR#: [id number] : 1970 Acct:[id number] Age/Sex: 49 / F ADM Date: 12/28/19 Loc: ED Attending Dr: Ordering Physician: JENNA SALMON MD Date of Service: 12/28/19 Procedure(s): US abdomen limited Accession Number(s): [id number] cc: JENNA SALMON MD ULTRASOUND ABDOMEN, LIMITED (RIGHT UPPER QUADRANT) INDICATION / CLINICAL INFORMATION: RUQ pain. COMPARISON: None available. FINDINGS: PANCREAS: Visualized portion shows no significant abnormality. LIVER: Liver is enlarged measuring 18.5 cm in length. The hepatic parenchyma is mildly heterogeneous and slightly echogenic. There are a few very small simple hepatic cysts noted. No solid mass. GALLBLADDER: No significant abnormality. No evidence of gallstones or gallbladder wall thickening. BILE DUCTS: No significant abnormality. Common bile duct measures 6 mm. FREE FLUID: None. ADDITIONAL FINDINGS: Right kidney is unremarkable. IMPRESSION: 1. Mild hepatomegaly with heterogeneous hepatic parenchyma. The appearance is nonspecific but indicative of hepatocellular disease. 2. Normal appearance of the gallbladder, pancreas, and right kidney. Signer Name: Rosette Patel MD Signed: 12/28/2019 7:48 AM Workstation Name: [id number] Transcribed By: JR Dictated By: Rosette Patel MD Electronically Authenticated By: Rosette Patel MD Signed Date/Time: 12/28/19747 DD/ 5 TD/TT: Critical care attestation.: If time is entered above; I have spent that time in minutes in the direct care of this critically ill patient, excluding procedure time. ED Disposition Clinical Impression: UTI (urinary tract infection) Disposition: DC-01 TO HOME OR SELFCARE Is pt being admited?: No Does the pt Need Aspirin: No Condition: Stable Instructions: Abdominal Pain (ED), Urinary Tract Infection in Women (ED) Additional Instructions: Complete antibiotics as prescribed. Increase your fluid intake advance your diet as tolerated. Take Tylenol or ibuprofen for pain. Follow-up with your primary care provider if symptoms persist or gets worse Prescriptions: Nitrofurantoin Mcdonough/M-Cryst [Macrobid CAP] 100 mg PO Q12HR 7 Days #14 capsule Referrals: SEBASTIAN CROOK MD [Primary Care Provider] - 3-5 Days Forms: Work/School Release Form(ED)
== END 2019-12-28 10:35 | disposition home or self-care (01) ==
LOC: ED 06:44
DX: N39.0 Urinary tract infection, site not specified (principal); Z90.710 Acquired absence of both cervix and uterus; F17.200 Nicotine dependence, unspecified, uncomplicated; Z79.1 Long term (current) use of non-steroidal anti-inflammatories (NSAID); Z79.899 Other long term (current) drug therapy; Z88.8 Allergy status to other drugs, medicaments and biological substances
CPT/HCPCS: 36415; 76705; 80053; 81001; 83690; 85025

== ENCOUNTER 2020-09-29 22:41 | Emergency (ER) | payer SELFPAY ==
[2020-09-29] MEDS ORDERED: SODIUM CHLORIDE 0.9% 1000 ML IV SOLN IV ONE (22:55)
[2020-09-29] MEDS ORDERED: dexAMETHasone 4 MG/ML VIAL IV ONE (22:56)
[2020-09-29] MEDS ORDERED: CEFEPIME/NS 2 GM/100 ML 2 GM/100 ML BAG IV ONE (22:56)
--- NOTE | 2020-09-29 22:59 | Emergency Department Report ---
ED General Adult HPI - General Chief complaint: Upper Respiratory Infection Stated complaint: COUGH, SORE THROAT, AND HEADACHE PUI?: Yes Time Seen by Provider: 09/29/20 22:55 Source: patient Mode of arrival: Ambulatory Limitations: No Limitations - History of Present Illness Initial comments: She is a 50-year-old female that presents emergency room with complaints of sore throat, cough, sinus headache. Patient states her symptoms started 3 days ago. Patient states her headache is in the frontal region. Patient states her headache is a 10 out of 10. Patient states that headache is better with rest and worse with exertion. Patient denies blurry vision. Patient denies neck stiffness. Patient denies fever and chills. Patient states her cough is dry. -: Sudden, days(s) Location: head Severity scale (0 -10): 10 Quality: stabbing Consistency: constant Improves with: rest Worsens with: movement Associated Symptoms: cough, headaches. denies: diaphoresis, fever/chills, loss of appetite, malaise, nausea/vomiting, rash, seizure, shortness of breath, syncope, weakness Treatments Prior to Arrival: other - Related Data Previous Rx's Medication Instructions Recorded Last Taken Type Cyclobenzaprine [Flexeril] 10 mg PO TID PRN #10 tablet 03/29/19 Unknown Rx Ibuprofen [Motrin] 800 mg PO Q8HR PRN #25 tablet 03/29/19 Unknown Rx predniSONE [Deltasone] 20 mg PO DAILY #5 tablet 03/29/19 Unknown Rx Amoxicillin [Amoxicillin TAB] 875 mg PO BID 7 Days #14 tablet 11/13/19 Unknown Rx predniSONE [Deltasone] 3 tab PO QDAY 4 Days #12 tab 11/13/19 Unknown Rx Nitrofurantoin [place]/M-Cryst 100 mg PO Q12HR 7 Days #14 capsule 12/28/19 Unknown Rx [Macrobid CAP] Benzonatate [Tessalon Perles] 100 mg PO Q8HR PRN #30 capsule 09/30/20 Unknown Rx Doxycycline Hyclate 100 mg PO BID 10 Days #20 tablet. 09/30/20 Unknown Rx methylPREDNISolone [Medrol 4MG 4 mg PO DAILY 6 Days #1 tab.ds.pk 09/30/20 Unknown Rx DOSEPAK (21 tabs)] Allergies Allergy/AdvReac Type Severity Reaction Status Date / Time erythromycin base Allergy Rash Verified 02/24/17 07:27 tramadol Allergy Rash Verified 02/24/17 07:27 ED Review of Systems ROS: Stated complaint: COUGH, SORE THROAT, AND HEADACHE Other details as noted in HPI Constitutional: denies: chills, fever Eyes: denies: eye pain, eye discharge, vision change ENT: throat pain. denies: ear pain Respiratory: cough. denies: shortness of breath, wheezing Cardiovascular: denies: chest pain, palpitations Endocrine: no symptoms reported Gastrointestinal: denies: abdominal pain, nausea, diarrhea Genitourinary: denies: urgency, dysuria, discharge Musculoskeletal: denies: back pain, joint swelling, arthralgia Skin: denies: rash, lesions Neurological: headache. denies: weakness, paresthesias Psychiatric: denies: anxiety, depression Hematological/Lymphatic: denies: easy bleeding, easy bruising ED Past Medical Hx - Past Medical History Previous Medical History?: Yes Hx Hypertension: No Hx Asthma: No Hx HIV: No Additional medical history: Left ankle injury - Surgical History Past Surgical History?: Yes Additional Surgical History: Partial hysterectomy - Family History Family history: no significant - Social History Smoking Status: Current Some Day Smoker Substance Use Type: Alcohol - Medications Home Medications: Home Medications Medication Instructions Recorded Confirmed Last Taken Type Cyclobenzaprine [Flexeril] 10 mg PO TID PRN #10 tablet 03/29/19 Unknown Rx Ibuprofen [Motrin] 800 mg PO Q8HR PRN #25 tablet 03/29/19 Unknown Rx predniSONE [Deltasone] 20 mg PO DAILY #5 tablet 03/29/19 Unknown Rx Amoxicillin [Amoxicillin TAB] 875 mg PO BID 7 Days #14 tablet 11/13/19 Unknown Rx predniSONE [Deltasone] 3 tab PO QDAY 4 Days #12 tab 11/13/19 Unknown Rx Nitrofurantoin [place]/M-Cryst 100 mg PO Q12HR 7 Days #14 capsule 12/28/19 Unknown Rx [Macrobid CAP] Benzonatate [Tessalon Perles] 100 mg PO Q8HR PRN #30 capsule 09/30/20 Unknown Rx Doxycycline Hyclate 100 mg PO BID 10 Days #20 tablet.dr 09/30/20 Unknown Rx methylPREDNISolone [Medrol 4MG 4 mg PO DAILY 6 Days #1 tab.ds.pk 09/30/20 Unknown Rx DOSEPAK (21 tabs)] ED Physical Exam - General Limitations: No Limitations General appearance: alert, in no apparent distress - Head Head exam: Present: atraumatic, normocephalic - Eye Eye exam: Present: normal appearance - ENT ENT exam: Present: mucous membranes moist, other (Frontal sinus tenderness to palpation. Mild erythema of the oropharynx) - Neck Neck exam: Present: normal inspection - Respiratory Respiratory exam: Present: normal lung sounds bilaterally. Absent: respiratory distress - Cardiovascular Cardiovascular Exam: Present: regular rate, normal rhythm. Absent: systolic murmur, diastolic murmur, rubs, gallop - GI/Abdominal GI/Abdominal exam: Present: soft, normal bowel sounds - Extremities Exam Extremities exam: Present: normal inspection - Back Exam Back exam: Present: normal inspection - Neurological Exam Neurological exam: Present: alert, oriented X3 - Psychiatric Psychiatric exam: Present: normal affect, normal mood - Skin Skin exam: Present: warm, dry, intact, normal color. Absent: rash ED Course Vital Signs 09/29/20 09/30/20 09/30/20 23:04 00:05 00:15 Temperature 98.4 F Pulse Rate 85 80 Respiratory 15 16 Rate Blood Pressure 162/97 O2 Sat by Pulse 100 99 Oximetry - Reevaluation(s) Reevaluation #1: Patient states she is feeling much better. Patient states her cough is improved. Patient states her headache is resolved. I discussed all results and clinical findings with patient. I discussed plan of care with patient. Patient agrees with plan of care. Patient is stable for discharge. Patient will be discharged home. Patient given discharge instructions. Patient voiced understanding of discharge instructions. 09/30/20 00:43 ED Medical Decision Making - Lab Data Result diagrams: 09/29/20 23:10 09/29/20 23:10 - Radiology Data Radiology results: report reviewed, image reviewed interpreted by me: Chest x-ray: No pneumonia, no pneumothorax, no foreign body, no osseous findings, no acute findings CHEST 1 VIEW, 09/29/2020 10:09 PM CLINICAL INFORMATION/INDICATION: Cough. COMPARISON: Chest radiograph, 02/16/2018 FINDINGS: SUPPORT DEVICES: None. HEART: The cardiac silhouette is normal in size. LUNGS/PLEURA: The lungs are clear of focal airspace disease or significant pleural effusion. ADDITIONAL FINDINGS: No additional acute findings. IMPRESSION: 1. No evidence of acute cardiopulmonary process. - Medical Decision Making Patient is a 50-year-old female that presents emergency room with complaints of cough, sore throat and headache. Patient's headache is secondary to a sinus infection. Patient's sore throat and cough secondary to URI. There is a possibility that this is Covid 19 so I have recommended the patient to be tested as an outpatient. Patient had labs in the ER which were essentially u nremarkable. Patient had a chest x-ray was negative for acute findings. Patient given fluids, Tessalon Perles, steroids, antibiotics and her symptoms improved. Patient is stable for discharge. Patient discharged home. Patient given discharge instructions. - Differential Diagnosis Cough, sore throat, Covid, URI, sinusitis, headache Critical care attestation.: If time is entered above; I have spent that time in minutes in the direct care o f this critically ill patient, excluding procedure time. ED Disposition Clinical Impression: Sore throat, Cough Sinusitis, acute Qualifiers: Sinusitis location: frontal Recurrence: non-recurrent Qualified Code(s): J01.10 - Acute frontal sinusitis, unspecified Headache Qualifiers: Headache type: unspecified Headache chronicity pattern: acute headache Intractability: not intractable Qualified Code(s): R51.9 - Headache, unspecified Disposition: DC-01 TO HOME OR SELFCARE Is pt being admited?: No Does the pt Need Aspirin: No Condition: Stable Instructions: Cough, Adult, [id number], Sinusitis, Adult, [id number], Upper Respiratory Infection, Adult, [id number], COVID-19: How to Protect Yourself and Others - CDC, How to Perform a Sinus Rinse, COVID-19, Prevent the Spread of COVID-19 if You Are Sick - [facility] Additional Instructions: Patient to follow-up with primary care in 2 to 3 days. Patient to follow-up with health department in 2 to 3 days. Patient to have outpatient COVID-19 testing done. Patient to rest. Patient to increase water. Patient to self quarantine for 14 days. Patient to take Tylenol as needed for pain. Patient to take meds as directed. Patient to return to the ER if condition worsens, changes or new symptoms arise. Prescriptions: Doxycycline Hyclate 100 mg PO BID 10 Days #20 tablet. methylPREDNISolone [Medrol 4MG DOSEPAK (21 tabs)] 4 mg PO DAILY 6 Days #1 tab.ds.pk Benzonatate [Tessalon Perles] 100 mg PO Q8HR PRN #30 capsule PRN Reason: Cough Referrals: PRIMARY CARE, [Primary Care Provider] - 2-3 Days Time of Disposition: 00:43
--- NOTE | 2020-09-29 23:24 | XRay Report ---
CHEST 1 VIEW, 09/29/2020 10:09 PM CLINICAL INFORMATION/INDICATION: Cough. COMPARISON: Chest radiograph, 02/16/2018 FINDINGS: SUPPORT DEVICES: None. HEART: The cardiac silhouette is normal in size. LUNGS/PLEURA: The lungs are clear of focal airspace disease or significant pleural effusion. ADDITIONAL FINDINGS: No additional acute findings. IMPRESSION: 1. No evidence of acute cardiopulmonary process. Signer Name: Rosalba Kumar MD Signed: 09/29/2020 11:20 PM Workstation Name: [id number]
[2020-09-29 23:27] LABS: Basophils % (Auto) 0.7 % (0.0-1.8); Eosinophils # (Auto) 0.1 K/mm3 (0.0-0.4); Hematocrit 39.4 % (30.3-42.9); Hemoglobin 13.7 gm/dl (10.1-14.3); Lymphocytes # (Auto) 2.4 K/mm3 (1.2-5.4); Lymphocytes % (Auto) 48.4 % (13.4-35.0); Mean Corpuscular HGB Conc 35 % (30-34); Mean Corpuscular Volume 102 fl (79-97); Monocytes # (Auto) 0.4 K/mm3 (0.0-0.8); Monocytes % (Auto) 8.1 % (0.0-7.3); Platelet Count 210 K/mm3 (140-440); Red Blood Count 3.88 M/mm3 (3.65-5.03); Red Cell Distribution Width 13.8 % (13.2-15.2)
[2020-09-29 23:40] LABS: Alanine Aminotransferase 37 units/L (7-56); Albumin 4.6 g/dL (3.9-5); Blood Urea Nitrogen 10 mg/dL (7-17); Calcium 9.9 mg/dL (8.4-10.2); Hemolysis Index 14
[2020-09-29 23:45] LABS: BUN/Creatinine Ratio 17
[2020-09-29] MEDS ORDERED: BENZONATATE 100 MG CAP PO ONE (23:56)
[2020-09-30 00:22] VITALS: BP 162/97
== END 2020-09-30 01:05 | disposition home or self-care (01) ==
LOC: ED 22:41 → EEVIPCON 22:41 → ED 09-30 01:05
DX: J01.90 Acute sinusitis, unspecified (principal); R05 Cough; F17.200 Nicotine dependence, unspecified, uncomplicated; Z90.710 Acquired absence of both cervix and uterus; Z79.899 Other long term (current) drug therapy; Z88.8 Allergy status to other drugs, medicaments and biological substances
CPT/HCPCS: 36415; 71045; 80053; 85025; 96365; 96375; 99283; J0692; J1100; J7030

== ENCOUNTER 2021-09-08 21:07 | Emergency (ER) | payer SELFPAY ==
[2021-09-08] MEDS ORDERED: IPRATROPIUM/ALBUTEROL SULFATE 3 ML AMPUL.NEB IH ONE (21:39)
[2021-09-08] MEDS ORDERED: methylPREDNISolone Sod Succinate 125 MG/2 ML INJ IM ONE (21:39)
[2021-09-08] MEDS ORDERED: ACETAMINOPHEN 325 MG TAB PO ONE (22:32)
--- NOTE | 2021-09-08 22:33 | XRay Report ---
XR chest routine 2V INDICATION / CLINICAL INFORMATION: Cough, wheezing, dyspnea. COMPARISON: 09/29/2020 FINDINGS: SUPPORT DEVICES: None. HEART /PULMONARY VASCULATURE: No significant abnormality. LUNGS / PLEURA: No significant pulmonary or pleural abnormality. No pneumothorax. ADDITIONAL FINDINGS: No significant additional findings. IMPRESSION: 1. No acute findings. Signer Name: Félix Garcia MD Signed: 09/08/2021 10:29 PM Workstation Name: [id number]
[2021-09-08 22:44] LABS: Hematocrit 42.1 % (30.3-42.9); Hemoglobin 13.8 gm/dl (10.1-14.3); Mean Corpuscular HGB Conc 33 % (30-34); Mean Corpuscular Volume 102 fl (79-97); Platelet Count 195 K/mm3 (140-440); Red Blood Count 4.15 M/mm3 (3.65-5.03); Red Cell Distribution Width 13.3 % (13.2-15.2)
[2021-09-08 23:02] LABS: Alanine Aminotransferase 45 units/L (7-56); Albumin 4.5 g/dL (3.9-5); Blood Urea Nitrogen 12 mg/dL (7-17); Calcium 9.3 mg/dL (8.4-10.2); Hemolysis Index 25
[2021-09-08 23:03] LABS: BUN/Creatinine Ratio 17
--- NOTE | 2021-09-08 23:23 | Emergency Department Report ---
- General Chief Complaint: Upper Respiratory Infection Stated Complaint: cough X3 days with headache Source: patient Mode of arrival: Ambulatory Limitations: No Limitations - History of Present Illness Initial Comments: Patient is a 51-year-old -[place] female with a history of heavy tobacco abuse and chronic low back pain who presents to the ED with complaint of acute onset persistent nasal and sinus congestion, frontal sinus pressure, frontal headache, diffuse body aches and pains, persistent dry cough with intermittent wheezing and shortness of breath for the last 1 week. Patient states that the symptoms are worsened in the last 3 days. 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 Patient denies dizziness, syncope, chest pain, abdominal pain, diaphoresis, nausea and vomiting, diarrhea, dysuria, urinary frequency and urgency, sore throat, change in vision or lightheadedness MD Complaint: cough, rhinorrhea, nasal congestion, sinus pain, other (Diffuse body aches and pain) -: Sudden, week(s) (1) Severity: severe Severity scale (0 -10): 7 Quality: sharp, aching Consistency: constant Improves With: nothing Worsens With: nothing Context: sick contacts Associated Symptoms: denies other symptoms, chills, myalgias, headache, rhinorrhea, nasal congestion, cough, shortness of breath. denies: fever, diaphoresis, sore throat, chest pain, abdominal pain, nausea, vomiting, diarrhea, dysuria, rash, confusion, right sweats, weight loss, epistaxis, hoarseness, ear pain Treatments Prior to Arrival: none - Related Data Previous Rx's Medication Instructions Recorded Last Taken Type Cyclobenzaprine [Flexeril] 10 mg PO TID PRN #10 tablet 03/29/19 Unknown Rx Ibuprofen [Motrin] 800 mg PO Q8HR PRN #25 tablet 03/29/19 Unknown Rx predniSONE [Deltasone] 20 mg PO DAILY #5 tablet 03/29/19 Unknown Rx Amoxicillin [Amoxicillin TAB] 875 mg PO BID 7 Days #14 tablet 11/13/19 Unknown Rx predniSONE [Deltasone] 3 tab PO QDAY 4 Days #12 tab 11/13/19 Unknown Rx Nitrofurantoin [place]/M-Cryst 100 mg PO Q12HR 7 Days #14 capsule 12/28/19 Unknown Rx [Macrobid CAP] Benzonatate [Tessalon Perles] 100 mg PO Q8HR PRN #30 capsule 09/30/20 Unknown Rx Doxycycline Hyclate 100 mg PO BID 10 Days #20 tablet.dr 09/30/20 Unknown Rx methylPREDNISolone [Medrol 4MG 4 mg PO DAILY 6 Days #1 tab.ds.pk 09/30/20 Unknown Rx DOSEPAK (21 tabs)] Albuterol Sulfate [Proventil Hfa] 1 - 2 puff IH Q6H PRN #1 hfa.aer.ad 09/08/21 Unknown Rx Benzonatate [Tessalon Perles] 100 mg PO Q8HR #30 capsule 09/08/21 Unknown Rx Cetirizine HCl [Zyrtec 10mg tab] 10 mg PO DAILY #30 tablet 09/08/21 Unknown Rx Doxycycline Hyclate [Lymepak] 100 mg PO Q12H #20 tablet 09/08/21 Unknown Rx Ibuprofen [Motrin] 600 mg PO Q8H PRN #30 tablet 09/08/21 Unknown Rx methylPREDNISolone [Medrol 4MG 4 mg PO DAILY #21 tab.ds.pk 09/08/21 Unknown Rx DOSEPAK (21 tabs)] Allergies Allergy/AdvReac Type Severity Reaction Status Date / Time erythromycin base Allergy Rash Verified 02/24/17 07:27 tramadol Allergy Rash Verified 02/24/17 07:27 ED Review of Systems ROS: Stated complaint: cough X3 days with headache Other details as noted in HPI Constitutional: chills, malaise. denies: fever Eyes: denies: eye pain, eye discharge, vision change ENT: congestion, other (Nasal and sinus congestion). denies: ear pain, throat pain Respiratory: cough, shortness of breath, wheezing Cardiovascular: denies: chest pain, palpitations Endocrine: no symptoms reported Gastrointestinal: denies: abdominal pain, nausea, diarrhea Genitourinary: denies: urgency, dysuria, discharge Musculoskeletal: arthralgia, myalgia. denies: back pain, joint swelling Skin: denies: rash, lesions Neurological: headache. denies: weakness, paresthesias Psychiatric: denies: anxiety, depression Hematological/Lymphatic: denies: easy bleeding, easy bruising ED Past Medical Hx - Past Medical History Previous Medical History?: Yes Hx Hypertension: No Hx Asthma: No Hx HIV: No Additional medical history: Left ankle injury - Surgical History Past Surgical History?: Yes Additional Surgical History: Partial hysterectomy - Social History Smoking Status: Never Smoker Substance Use Type: None - Medications Home Medications: Home Medications Medication Instructions Recorded Confirmed Last Taken Type Cyclobenzaprine [Flexeril] 10 mg PO TID PRN #10 tablet 03/29/19 Unknown Rx Ibuprofen [Motrin] 800 mg PO Q8HR PRN #25 tablet 03/29/19 Unknown Rx predniSONE [Deltasone] 20 mg PO DAILY #5 tablet 03/29/19 Unknown Rx Amoxicillin [Amoxicillin TAB] 875 mg PO BID 7 Days #14 tablet 11/13/19 Unknown Rx predniSONE [Deltasone] 3 tab PO QDAY 4 Days #12 tab 11/13/19 Unknown Rx Nitrofurantoin [place]/M-Cryst 100 mg PO Q12HR 7 Days #14 capsule 12/28/19 Unknown Rx [Macrobid CAP] Benzonatate [Tessalon Perles] 100 mg PO Q8HR PRN #30 capsule 09/30/20 Unknown Rx Doxycycline Hyclate 100 mg PO BID 10 Days #20 tablet.dr 09/30/20 Unknown Rx methylPREDNISolone [Medrol 4MG 4 mg PO DAILY 6 Days #1 tab.ds.pk 09/30/20 Unknown Rx DOSEPAK (21 tabs)] Albuterol Sulfate [Proventil Hfa] 1 - 2 puff IH Q6H PRN #1 hfa.aer.ad 09/08/21 Unknown Rx Benzonatate [Tessalon Perles] 100 mg PO Q8HR #30 capsule 09/08/21 Unknown Rx Cetirizine HCl [Zyrtec 10mg tab] 10 mg PO DAILY #30 tablet 09/08/21 Unknown Rx Doxycycline Hyclate [Lymepak] 100 mg PO Q12H #20 tablet 09/08/21 Unknown Rx Ibuprofen [Motrin] 600 mg PO Q8H PRN #30 tablet 09/08/21 Unknown Rx methylPREDNISolone [Medrol 4MG 4 mg PO DAILY #21 tab.ds.pk 09/08/21 Unknown Rx DOSEPAK (21 tabs)] ED Physical Exam - General Limitations: No Limitations General appearance: alert, in no apparent distress - Head Head exam: Present: atraumatic, normocephalic, normal inspection - Eye Eye exam: Present: normal appearance, PERRL, EOMI Pupils: Present: normal accommodation - ENT ENT exam: Present: normal orophraynx, mucous membranes moist, TM's normal bilaterally, normal external ear exam, other (Grossly congested nasal passages; palpable frontal and maxillary sinus tenderness) - Neck Neck exam: Present: normal inspection - Respiratory Respiratory exam: Present: wheezes (Mild diffuse coarse wheezes throughout). Absent: respiratory distress, rales, rhonchi, chest wall tenderness, accessory muscle use - Cardiovascular Cardiovascular Exam: Present: regular rate, normal rhythm, normal heart sounds. Absent: systolic murmur, diastolic murmur, rubs, gallop - GI/Abdominal GI/Abdominal exam: Present: soft, normal bowel sounds. Absent: tenderness, guarding, hyperactive bowel sounds, hypoactive bowel sounds, organomegaly, mass - Extremities Exam Extremities exam: Present: normal inspection, full ROM, normal capillary refill - Back Exam Back exam: Present: normal inspection, full ROM. Absent: tenderness, CVA tenderness (R), CVA tenderness (L), muscle spasm - Neurological Exam Neurological exam: Present: alert, oriented X3, CN II-XII intact, normal gait, reflexes normal - Psychiatric Psychiatric exam: Present: normal affect, normal mood - Skin Skin exam: Present: warm, dry, intact, normal color. Absent: rash ED Course Vital Signs 09/08/21 21:16 Temperature 98.3 F Pulse Rate 94 H Respiratory 18 Rate Blood Pressure 142/85 [Left] O2 Sat by Pulse 97 Oximetry ED Medical Decision Making - Lab Data Result diagrams: 09/08/21 22:20 09/08/21 22:20 - Radiology Data Radiology results: report reviewed, image reviewed [address] [address] XRay Report Signed Patient: JACE AIKEN MR#: [id number] : 1970 Acct:[id number] Age/Sex: 51 / F ADM Date: 09/08/21 Loc: ED Attending Dr: Ordering Physician: ELENA WHYTE Date of Service: 09/08/21 Procedure(s): XR chest routine 2V Accession Number(s): [id number] cc: ELENA WHYTE Fluoro Time In Minutes: XR chest routine 2V INDICATION / CLINICAL INFORMATION: Cough, wheezing, dyspnea. COMPARISON: 09/29/2020 FINDINGS: SUPPORT DEVICES: None. HEART /PULMONARY VASCULATURE: No significant abnormality. LUNGS / PLEURA: No significant pulmonary or pleural abnormality. No pneumothorax. ADDITIONAL FINDINGS: No significant additional findings. IMPRESSION: 1. No acute findings. Signer Name: Trae Garcia MD Signed: 09/08/2021 10:29 PM Workstation Name: [id number] Transcribed By: JS Dictated By: TRAE GARCIA MD Electronically Authenticated By: TRAE GARCIA MD Signed Date/Time: 09/08/212228 DD/ 28 TD/TT: Print Cancel - Medical Decision Making This is a 51-year-old -[place] female with a history of heavy tobacco abuse and chronic low back pain who presents to the ED with complaint of acute onset persistent nasal and sinus congestion, frontal sinus pressure, frontal hea dache, diffuse body aches and pains, persistent dry cough with intermittent wheezing and shortness of breath for the last 1 week. Patient states that the symptoms are worsened in the last 3 days. 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 In the ED, patient is alert and oriented x3 and is not in any distress. Patient is hemodynamically stable. Patient's oxygen saturation 97% in room air. Chest x-ray showed no acute cardiopulmonary abnormalities or pneumonitis. Lab test results were reviewed and are all nonactionable. Patient received DuoNeb treatment in the ED, also treated for pain with Tylenol and also Solu-Medrol 125 mg intramuscular injection. On reevaluation, patient felt better. Patient is hemodynamically stable. Patient symptoms are likely due to upper respiratory infection versus bronchitis versus reactive airway disease. Patient was therefore discharged home on medications and advised to follow-up with her primary care physician in 5 to 7 days for reevaluation. Patient was encouraged to consider quitting tobacco abuse to improve on her symptoms. Patient verbalized understanding. Patient was advised return to the ED immediately if symptoms get worse. - Differential Diagnosis Sinusitis; bronchitis; URI; pneumonia; COVID-19; Critical care attestation.: If time is entered above; I have spent that time in minutes in the direct care of this critically ill patient, excluding procedure time. ED Disposition Clinical Impression: Acute exacerbation of chronic bronchitis, Acute upper respiratory infection, Acute bacterial sinusitis, Tobacco abuse disorder Disposition: 01 HOME / SELF CARE / HOMELESS Is pt being admited?: No Does the pt Need Aspirin: No Condition: Stable Instructions: Chronic Bronchitis (ED), Sinusitis, Adult, [id number], Upper Respiratory Infection, Adult, [id number], Cough, Adult, [id number], Acute Bronchitis, Adult, Dhmy-gc-Svkh, Tobacco Use Disorder Additional Instructions: All lab test results were reviewed and are all nonactionable. Chest x-ray showed no acute cardiopulmonary abnormalities or pneumonitis. Your symptoms are likely due to persistent nasal and sinus congestion, sinusitis and bronchitis making things worse. Obviously your smoking history also does not help your symptoms. Therefore take medications with food, drink plenty of fluids and follow-up with your primary care physician in 7 to 10 days for reevaluation. Consider quitting tobacco smoking habit to improve on your symptoms. Return to the ED immediately if symptoms get worse. Prescriptions: Doxycycline Hyclate [Lymepak] 100 mg PO Q12H #20 tablet methylPREDNISolone [Medrol 4MG DOSEPAK (21 tabs)] 4 mg PO DAILY #21 tab.ds.pk Ibuprofen [Motrin] 600 mg PO Q8H PRN #30 tablet PRN Reason: Pain Albuterol Sulfate [Proventil Hfa] 1 - 2 puff IH Q6H PRN #1 hfa.aer.ad PRN Reason: Dyspnea / Wheezing Benzonatate [Tessalon Perles] 100 mg PO Q8HR #30 capsule Cetirizine HCl [Zyrtec 10mg tab] 10 mg PO DAILY #30 tablet Referrals: SEBASTIAN CROOK MD [Staff Physician] - 7-10 days Forms: Work/School Release Form(ED) Time of Disposition: 23:20 Print Language: SPANISH
[2021-09-08 23:51] LABS: Anisocytosis 1+; Total Cells Counted 100
[2021-09-08 23:52] LABS: Large Platelets Few; Macrocytosis 1+; Platelet Estimate Consistent w Auto
[2021-09-09 01:45] VITALS: BP 129/75
== END 2021-09-09 00:26 | disposition home or self-care (01) ==
LOC: ED 21:07
DX: J20.9 Acute bronchitis, unspecified (principal); J06.9 Acute upper respiratory infection, unspecified; J01.90 Acute sinusitis, unspecified; B96.89 Other specified bacterial agents as the cause of diseases classified elsewhere; Z88.1 Allergy status to other antibiotic agents; Z88.6 Allergy status to analgesic agent; Z79.899 Other long term (current) drug therapy
CPT/HCPCS: 36415; 71046; 80053; 85007; 85025; 94640; 96372; 99284; J2930

== ENCOUNTER 2021-10-08 13:01 | Outpatient (CLI) | payer BC ==
--- NOTE | 2021-10-08 15:19 | XRay Report ---
Lumbar spine 5 views INDICATION: Back pain FINDINGS: Alignment appears normal. No compression fractures seen. Facet degenerative change L4-L5 an d L5-S1. No subluxation. Signer Name: Milo Torres MD Signed: 10/08/2021 3:14 PM Workstation Name: [id number]
--- NOTE | 2021-10-08 15:48 | Cat Scan Report ---
CT RIGHT UPPER EXTREMITY WITHOUT CONTRAST INDICATION / CLINICAL INFORMATION: Possible muscle tear . TECHNIQUE: All CT scans at this location are performed using CT dose reduction for ALARA by means of automated exposure control. COMPARISON: None available. FINDINGS: BONES: No acute fracture. No osseous lesion. JOINT(S): No significant arthritis. No significant effusion. No intra-articular bodies. MUSCLES / TENDONS: No muscle tear identified. There is intermuscular lipoma in the extensor muscle bu ndle of the forearm. Small amount of calcification within the common extensor tendon characteristic f or chronic tear/heterotopic ossification SOFT TISSUES: No significant abnormality. ADDITIONAL FINDINGS: None. IMPRESSION: 1. Chronic tear/tendinosis common extensor tendon described above. No acute muscle tear seen. 2. 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 Report dictated by: Wes Longoria MD Report dictated on: 10/08/2021 2:27 PM I have reviewed the images, agree with this report, and edited this report as needed. Signer Name: Darci Gamboa MD Signed: 10/08/2021 3:44 PM Workstation Name: [id number]
== END 2021-10-08 13:02 | disposition home or self-care (01) ==
LOC: CT 13:01
PROVIDERS: ATTEND Internal Medicine
DX: S56.911A Strain of unspecified muscles, fascia and tendons at forearm level, right arm, initial encounter (principal); D17.21 Benign lipomatous neoplasm of skin and subcutaneous tissue of right arm; M47.817 Spondylosis without myelopathy or radiculopathy, lumbosacral region; X58.XXXA Exposure to other specified factors, initial encounter; Y93.89 Activity, other specified; Y92.89 Other specified places as the place of occurrence of the external cause; Y99.8 Other external cause status
CPT/HCPCS: 72110

== ENCOUNTER 2022-02-19 13:26 | Emergency (ER) | payer BC ==
[2022-02-19 13:50] VITALS: BP 131/58
--- NOTE | 2022-02-19 14:22 | Emergency Department Report ---
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 She comes to the emergency room complaining of left ankle swelling and left thigh pain. She states while having sex she noticed that she was having pain in the left thigh. Then the swelling occurred to her left ankle. She states she has been on recent family because of the stress created in the hospital. She is just returned to work and thinks it may be the activity and being on her feet is causing the swelling. However, she has also had prior surgery to the left ankle. There is soft tissue swelling of the lateral area of the left ankle. However, thigh pain is concerning for DVT. Location: left History of Same: No Radiation: none Consistency: intermittent Improves with: nothing Worsens with: nothing Associated Symptoms: denies other symptoms - Related Data Previous Rx's Medication Instructions Recorded Last Taken Type Cyclobenzaprine [Flexeril] 10 mg PO TID PRN #10 tablet 03/29/19 Unknown Rx Ibuprofen [Motrin] 800 mg PO Q8HR PRN #25 tablet 03/29/19 Unknown Rx predniSONE [Deltasone] 20 mg PO DAILY #5 tablet 03/29/19 Unknown Rx Amoxicillin [Amoxicillin TAB] 875 mg PO BID 7 Days #14 tablet 11/13/19 Unknown Rx predniSONE [Deltasone] 3 tab PO QDAY 4 Days #12 tab 11/13/19 Unknown Rx Nitrofurantoin [place]/M-Cryst 100 mg PO Q12HR 7 Days #14 capsule 12/28/19 Unknown Rx [Macrobid CAP] Benzonatate [Tessalon Perles] 100 mg PO Q8HR PRN #30 capsule 09/30/20 Unknown Rx Doxycycline Hyclate 100 mg PO BID 10 Days #20 tablet.dr 09/30/20 Unknown Rx methylPREDNISolone [Medrol 4MG 4 mg PO DAILY 6 Days #1 tab.ds.pk 09/30/20 Unknown Rx DOSEPAK (21 tabs)] Albuterol Sulfate [Proventil Hfa] 1 - 2 puff IH Q6H PRN #1 hfa.aer.ad 09/08/21 Unknown Rx Benzonatate [Tessalon Perles] 100 mg PO Q8HR #30 capsule 09/08/21 Unknown Rx Cetirizine HCl [Zyrtec 10mg tab] 10 mg PO DAILY #30 tablet 09/08/21 Unknown Rx Doxycycline Hyclate [Lymepak] 100 mg PO Q12H #20 tablet 09/08/21 Unknown Rx Ibuprofen [Motrin] 600 mg PO Q8H PRN #30 tablet 09/08/21 Unknown Rx methylPREDNISolone [Medrol 4MG 4 mg PO DAILY #21 tab.ds.pk 09/08/21 Unknown Rx DOSEPAK (21 tabs)] Allergies Allergy/AdvReac Type Severity Reaction Status Date / Time erythromycin base Allergy Rash Verified 02/24/17 07:27 tramadol Allergy Rash Verified 02/24/17 07:27 ED Review of Systems ROS: Stated complaint: ANKLE SWOLLEN/LEG PAIN Other details as noted in HPI Comment: All other systems reviewed and negative ED Past Medical Hx - Past Medical History Previous Medical History?: No Hx Hypertension: No Hx Asthma: No Hx HIV: No Additional medical history: Left ankle injury - Surgical History Past Surgical History?: Yes Additional Surgical History: Partial hysterectomy - Family History Family history: no significant - Social History Smoking Status: Never Smoker Substance Use Type: None - Medications Home Medications: Home Medications Medication Instructions Recorded Confirmed Last Taken Type Cyclobenzaprine [Flexeril] 10 mg PO TID PRN #10 tablet 03/29/19 Unknown Rx Ibuprofen [Motrin] 800 mg PO Q8HR PRN #25 tablet 03/29/19 Unknown Rx predniSONE [Deltasone] 20 mg PO DAILY #5 tablet 03/29/19 Unknown Rx Amoxicillin [Amoxicillin TAB] 875 mg PO BID 7 Days #14 tablet 11/13/19 Unknown Rx predniSONE [Deltasone] 3 tab PO QDAY 4 Days #12 tab 11/13/19 Unknown Rx Nitrofurantoin [place]/M-Cryst 100 mg PO Q12HR 7 Days #14 capsule 12/28/19 Unknown Rx [Macrobid CAP] Benzonatate [Tessalon Perles] 100 mg PO Q8HR PRN #30 capsule 09/30/20 Unknown Rx Doxycycline Hyclate 100 mg PO BID 10 Days #20 tablet. 09/30/20 Unknown Rx methylPREDNISolone [Medrol 4MG 4 mg PO DAILY 6 Days #1 tab.ds.pk 09/30/20 Unknown Rx DOSEPAK (21 tabs)] Albuterol Sulfate [Proventil Hfa] 1 - 2 puff IH Q6H PRN #1 hfa.aer.ad 09/08/21 Unknown Rx Benzonatate [Tessalon Perles] 100 mg PO Q8HR #30 capsule 09/08/21 Unknown Rx Cetirizine HCl [Zyrtec 10mg tab] 10 mg PO DAILY #30 tablet 09/08/21 Unknown Rx Doxycycline Hyclate [Lymepak] 100 mg PO Q12H #20 tablet 09/08/21 Unknown Rx Ibuprofen [Motrin] 600 mg PO Q8H PRN #30 tablet 09/08/21 Unknown Rx methylPREDNISolone [Medrol 4MG 4 mg PO DAILY #21 tab.ds.pk 09/08/21 Unknown Rx DOSEPAK (21 tabs)] ED Physical Exam - General Limitations: No Limitations General appearance: alert, in no apparent distress - Head Head exam: Present: atraumatic, normocephalic - Eye Eye exam: Present: normal appearance - ENT ENT exam: Present: mucous membranes moist - Neck Neck exam: Present: normal inspection - Respiratory Respiratory exam: Present: normal lung sounds bilaterally. Absent: respiratory distress - Cardiovascular Cardiovascular Exam: Present: regular rate, normal rhythm. Absent: systolic murmur, diastolic murmur, rubs, gallop - GI/Abdominal GI/Abdominal exam: Present: soft, normal bowel sounds - Extremities Exam Extremities exam: Present: normal inspection - Expanded Lower Extremity Exam Left Knee exam: Present: normal inspection Lower Leg exam: Present: normal inspection Ankle exam: Present: swelling, erythema - Back Exam Back exam: Present: normal inspection - Neurological Exam Neurological exam: Present: alert, oriented X3 - Psychiatric Psychiatric exam: Present: normal affect, normal mood - Skin Skin exam: Present: warm, dry, intact, normal color. Absent: rash ED Course Vital Signs 02/19/22 13:49 Temperature 98.5 F Pulse Rate 89 Respiratory 16 Rate Blood Pressure 131/58 [Left] O2 Sat by Pulse 99 Oximetry ED Medical Decision Making - Radiology Data Radiology results: report reviewed, image reviewed See report - Medical Decision Making Vital Signs 02/19/22 13:49 Temperature 98.5 F Pulse Rate 89 Respiratory 16 Rate Blood Pressure 131/58 [Left] O2 Sat by Pulse 99 Oximetry The vascular construction craft laborer gave patient the results of her ultrasound, read as negative by the foster care therapist. The patient then eloped from the emergency room. Patient left without discharge instructions - Differential Diagnosis Rule out DVT Critical care attestation.: If time is entered above; I have spent that time in minutes in the direct care of this critically ill patient, excluding procedure time. ED Disposition Clinical Impression: Leg pain Qualifiers: Laterality: left Qualified Code(s): M79.605 - Pain in left leg Disposition: 07 LEFT WITHOUT BEING SEEN Is pt being admited?: No Does the pt Need Aspirin: No Condition: Stable Time of Disposition: 15:00
--- NOTE | 2022-02-19 14:25 | Vascular Lab Report ---
DUPLEX DOPPLER LOWER EXTREMITY VEINS, LEFT INDICATION / CLINICAL INFORMATION: Left leg swelling. History of prior left ankle surgery. TECHNIQUE: Duplex doppler imaging was performed through the veins of the left lower extremity using v enous compression and other maneuvers. COMPARISON: None available. FINDINGS: LEFT COMMON FEMORAL VEIN: Negative. LEFT FEMORAL VEIN: Negative. LEFT POPLITEAL VEIN: Negative. LEFT CALF VEINS: Negative. ADDITIONAL FINDINGS: No abnormal mass or fluid collection is seen. IMPRESSION: No sonographic evidence for DVT in the left lower extremity. Signer Name: Dhaval Mccarthy MD Signed: 02/19/2022 2:20 PM Workstation Name: [id number]
== END 2022-02-19 15:00 | disposition left against medical advice (07) ==
LOC: ED 13:26
DX: M79.605 Pain in left leg (principal); R22.42 Localized swelling, mass and lump, left lower limb; Z90.710 Acquired absence of both cervix and uterus; Z88.6 Allergy status to analgesic agent; Z88.8 Allergy status to other drugs, medicaments and biological substances; Z79.899 Other long term (current) drug therapy
CPT/HCPCS: 99283

== ENCOUNTER 2022-03-01 00:16 | Emergency (ER) | payer BC ==
[2022-03-01 00:28] VITALS: BP 131/58
--- NOTE | 2022-03-01 00:59 | XRay Report ---
LEFT ANKLE 3 VIEW(S) INDICATION / CLINICAL INFORMATION: possible injury COMPARISON: 08/19/2017 FINDINGS: BONES / JOINT(S): No acute fracture or subluxation. No significant arthritis. Patient is status post plate and screw fixation of the distal fibula. The hardware is well seated. SOFT TISSUES: There is soft tissue swelling about the ankle. ADDITIONAL FINDINGS: None. Signer Name: Marcelo Davis DO Signed: 03/01/2022 12:55 AM Workstation Name: [id number]
[2022-03-01] MEDS ORDERED: KETOROLAC 30 MG/1 ML INJ IM ONE (03:42)
[2022-03-01] MEDS ORDERED: dexAMETHasone 20 MG/5 ML VIAL IM ONE (03:42)
--- NOTE | 2022-03-01 03:47 | Emergency Department Report ---
ED Back Pain/Injury HPI - General Chief Complaint: Extremity Injury, Lower Stated Complaint: ANKLE PAIN SWOLLEN Time Seen by Provider: 03/01/22 03:38 Source: patient Limitations: No Limitations - History of Present Illness Initial Comments: Patient 51-year-old male who presents for bilateral lower back pain radiating to bilateral lower extremities to 3 days. Patient states history of same 6 weeks ago. 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 Lifting reaching and pulling greater than 8 hours a day. Patient denies other fall injury or trauma. Pain is described as 7/10 sharp achy burning tingling there is been no paralysis however no loss or decrease in bowel or bladder function. Pain is exacerbated by walking reaching and bending. Pain is relieved by nothing tried. MD Complaint: back pain - Related Data Previous Rx's Medication Instructions Recorded Last Taken Type Cyclobenzaprine [Flexeril] 10 mg PO TID PRN #10 tablet 03/29/19 Unknown Rx Ibuprofen [Motrin] 800 mg PO Q8HR PRN #25 tablet 03/29/19 Unknown Rx predniSONE [Deltasone] 20 mg PO DAILY #5 tablet 03/29/19 Unknown Rx Amoxicillin [Amoxicillin TAB] 875 mg PO BID 7 Days #14 tablet 11/13/19 Unknown Rx predniSONE [Deltasone] 3 tab PO QDAY 4 Days #12 tab 11/13/19 Unknown Rx Nitrofurantoin [place]/M-Cryst 100 mg PO Q12HR 7 Days #14 capsule 12/28/19 Unknown Rx [Macrobid CAP] Benzonatate [Tessalon Perles] 100 mg PO Q8HR PRN #30 capsule 09/30/20 Unknown Rx Doxycycline Hyclate 100 mg PO BID 10 Days #20 tablet.dr 09/30/20 Unknown Rx methylPREDNISolone [Medrol 4MG 4 mg PO DAILY 6 Days #1 tab.ds.pk 09/30/20 Unknown Rx DOSEPAK (21 tabs)] Albuterol Sulfate [Proventil Hfa] 1 - 2 puff IH Q6H PRN #1 hfa.aer.ad 09/08/21 Unknown Rx Benzonatate [Tessalon Perles] 100 mg PO Q8HR #30 capsule 09/08/21 Unknown Rx Cetirizine HCl [Zyrtec 10mg tab] 10 mg PO DAILY #30 tablet 09/08/21 Unknown Rx Doxycycline Hyclate [Lymepak] 100 mg PO Q12H #20 tablet 09/08/21 Unknown Rx Ibuprofen [Motrin] 600 mg PO Q8H PRN #30 tablet 09/08/21 Unknown Rx methylPREDNISolone [Medrol 4MG 4 mg PO DAILY #21 tab.ds.pk 09/08/21 Unknown Rx DOSEPAK (21 tabs)] Allergies Allergy/AdvReac Type Severity Reaction Status Date / Time erythromycin base Allergy Rash Verified 02/24/17 07:27 tramadol Allergy Rash Verified 02/24/17 07:27 ED Review of Systems ROS: Stated complaint: ANKLE PAIN SWOLLEN Other details as noted in HPI Constitutional: denies: chills, fever Eyes: denies: eye pain, eye discharge, vision change ENT: denies: ear pain, throat pain Respiratory: denies: cough, shortness of breath, wheezing Cardiovascular: denies: chest pain, palpitations Endocrine: no symptoms reported Gastrointestinal: denies: abdominal pain, nausea, diarrhea Genitourinary: denies: urgency, dysuria, discharge Musculoskeletal: back pain, myalgia Skin: denies: rash, lesions Neurological: denies: headache, weakness, paresthesias Psychiatric: denies: anxiety, depression Hematological/Lymphatic: denies: easy bleeding, easy bruising ED Past Medical Hx - Past Medical History Hx Hypertension: No Hx Asthma: No Hx HIV: No Additional medical history: Left ankle injury - Surgical History Additional Surgical History: Partial hysterectomy - Social History Smoking Status: Never Smoker Substance Use Type: None - Medications Home Medications: Home Medications Medication Instructions Recorded Confirmed Last Taken Type Cyclobenzaprine [Flexeril] 10 mg PO TID PRN #10 tablet 03/29/19 Unknown Rx Ibuprofen [Motrin] 800 mg PO Q8HR PRN #25 tablet 03/29/19 Unknown Rx predniSONE [Deltasone] 20 mg PO DAILY #5 tablet 03/29/19 Unknown Rx Amoxicillin [Amoxicillin TAB] 875 mg PO BID 7 Days #14 tablet 11/13/19 Unknown Rx predniSONE [Deltasone] 3 tab PO QDAY 4 Days #12 tab 11/13/19 Unknown Rx Nitrofurantoin [place]/M-Cryst 100 mg PO Q12HR 7 Days #14 capsule 12/28/19 Unknown Rx [Macrobid CAP] Benzonatate [Tessalon Perles] 100 mg PO Q8HR PRN #30 capsule 09/30/20 Unknown Rx Doxycycline Hyclate 100 mg PO BID 10 Days #20 tablet.dr 09/30/20 Unknown Rx methylPREDNISolone [Medrol 4MG 4 mg PO DAILY 6 Days #1 tab.ds.pk 09/30/20 Unknown Rx DOSEPAK (21 tabs)] Albuterol Sulfate [Proventil Hfa] 1 - 2 puff IH Q6H PRN #1 hfa.aer.ad 09/08/21 Unknown Rx Benzonatate [Tessalon Perles] 100 mg PO Q8HR #30 capsule 09/08/21 Unknown Rx Cetirizine HCl [Zyrtec 10mg tab] 10 mg PO DAILY #30 tablet 09/08/21 Unknown Rx Doxycycline Hyclate [Lymepak] 100 mg PO Q12H #20 tablet 09/08/21 Unknown Rx Ibuprofen [Motrin] 600 mg PO Q8H PRN #30 tablet 09/08/21 Unknown Rx methylPREDNISolone [Medrol 4MG 4 mg PO DAILY #21 tab.ds.pk 09/08/21 Unknown Rx DOSEPAK (21 tabs)] ED Physical Exam - General Limitations: No Limitations General appearance: alert, in no apparent distress - Head Head exam: Present: normocephalic, normal inspection - Eye Eye exam: Present: EOMI Pupils: Present: normal accommodation - ENT ENT exam: Present: mucous membranes moist - Neck Neck exam: Present: normal inspection, full ROM. Absent: tenderness - Respiratory Respiratory exam: Present: normal lung sounds bilaterally. Absent: respiratory distress, wheezes - Cardiovascular Cardiovascular Exam: Present: regular rate, normal rhythm, normal heart sounds. Absent: systolic murmur, diastolic murmur, rubs, gallop - GI/Abdominal GI/Abdominal exam: Present: soft, normal bowel sounds. Absent: distended, tenderness - Rectal Rectal exam: Present: deferred - Extremities Exam Extremities exam: Present: full ROM, normal capillary refill - Back Exam Back exam: Present: muscle spasm, paraspinal tenderness. Absent: vertebral tenderness - Expanded Back Exam Expanded Back exam: Absent: saddle anesthesia Back exam: Positive Straight Leg Raise: Left, Right - Neurological Exam Neurological exam: Present: alert, oriented X3, CN II-XII intact, reflexes normal. Absent: motor sensory deficit - Expanded Neurological Exam Expanded Patient oriented to: Present: person, place, time Speech: Present: fluid speech Motor strength exam: RUE: 5, LUE: 5, RLE: 5, LLE: 5 DTR: ankle (R): 1+, ankle (L): 1+ Best Eye Response (Yonis): (4) open spontaneously Best Motor Response (Yonis): (6) obeys commands Best Verbal Response (Yonis): (5) oriented Yonis Total: 15 - Psychiatric Psychiatric exam: Present: normal affect, normal mood - Skin Skin exam: Present: warm, dry, intact, normal color ED Course Vital Signs 03/01/22 00:23 Temperature 98.4 F Pulse Rate 68 Respiratory 16 Rate Blood Pressure 131/58 [Right] O2 Sat by Pulse 99 Oximetry Critical care attestation.: If time is entered above; I have spent that time in minutes in the direct care of this critically ill patient, excluding procedure time. ED Disposition Condition: Stable
--- NOTE | 2022-03-01 05:09 | Emergency Department Report ---
ED Lower Extremity HPI - General Chief Complaint: Extremity Injury, Lower Stated Complaint: ANKLE PAIN SWOLLEN Time Seen by Provider: 03/01/22 03:38 Source: patient Mode of arrival: Ambulatory Limitations: No Limitations - History of Present Illness Initial Comments: Is a 51-year-old female with history of left ankle fracture with ORIF repair. Patient presents with left ankle pain and swelling x2 days. Patient denies fall injury or trauma on this episode however. Patient does endorse arthralgia to left ankle. Symptoms at this time are 8/10 aching and pain described as sharp. Pain is relieved by offloading and rest. Pain is exacerbated by weightbearing. However patient is has been able to complete job duties as required. MD Complaint: ankle injury - Related Data Previous Rx's Medication Instructions Recorded Last Taken Type Cyclobenzaprine [Flexeril] 10 mg PO TID PRN #10 tablet 03/29/19 Unknown Rx Ibuprofen [Motrin] 800 mg PO Q8HR PRN #25 tablet 03/29/19 Unknown Rx predniSONE [Deltasone] 20 mg PO DAILY #5 tablet 03/29/19 Unknown Rx Amoxicillin [Amoxicillin TAB] 875 mg PO BID 7 Days #14 tablet 11/13/19 Unknown Rx predniSONE [Deltasone] 3 tab PO QDAY 4 Days #12 tab 11/13/19 Unknown Rx Nitrofurantoin [place]/M-Cryst 100 mg PO Q12HR 7 Days #14 capsule 12/28/19 Unknown Rx [Macrobid CAP] Benzonatate [Tessalon Perles] 100 mg PO Q8HR PRN #30 capsule 09/30/20 Unknown Rx Doxycycline Hyclate 100 mg PO BID 10 Days #20 tablet.dr 09/30/20 Unknown Rx methylPREDNISolone [Medrol 4MG 4 mg PO DAILY 6 Days #1 tab.ds.pk 09/30/20 Unknown Rx DOSEPAK (21 tabs)] Albuterol Sulfate [Proventil Hfa] 1 - 2 puff IH Q6H PRN #1 hfa.aer.ad 09/08/21 Unknown Rx Benzonatate [Tessalon Perles] 100 mg PO Q8HR #30 capsule 09/08/21 Unknown Rx Cetirizine HCl [Zyrtec 10mg tab] 10 mg PO DAILY #30 tablet 09/08/21 Unknown Rx Doxycycline Hyclate [Lymepak] 100 mg PO Q12H #20 tablet 09/08/21 Unknown Rx Ibuprofen [Motrin] 600 mg PO Q8H PRN #30 tablet 09/08/21 Unknown Rx methylPREDNISolone [Medrol 4MG 4 mg PO DAILY #21 tab.ds.pk 09/08/21 Unknown Rx DOSEPAK (21 tabs)] Naproxen 500 mg PO BID PRN #30 tab 03/01/22 Unknown Rx Allergies Allergy/AdvReac Type Severity Reaction Status Date / Time erythromycin base Allergy Rash Verified 02/24/17 07:27 tramadol Allergy Rash Verified 02/24/17 07:27 ED Review of Systems ROS: Stated complaint: ANKLE PAIN SWOLLEN Other details as noted in HPI Constitutional: denies: chills, fever Eyes: denies: eye pain, eye discharge, vision change ENT: denies: ear pain, throat pain Respiratory: denies: cough, shortness of breath, wheezing Cardiovascular: denies: chest pain, palpitations Endocrine: no symptoms reported Gastrointestinal: denies: abdominal pain, nausea, diarrhea Genitourinary: as per HPI Musculoskeletal: joint swelling (Left ankle lateral swelling) Skin: denies: rash, lesions Neurological: as per HPI Psychiatric: denies: anxiety, depression Hematological/Lymphatic: denies: easy bleeding, easy bruising ED Past Medical Hx - Past Medical History Hx Hypertension: No Hx Asthma: No Hx HIV: No Additional medical history: Left ankle injury - Surgical History Additional Surgical History: Partial hysterectomy - Social History Smoking Status: Never Smoker Substance Use Type: None - Medications Home Medications: Home Medications Medication Instructions Recorded Confirmed Last Taken Type Cyclobenzaprine [Flexeril] 10 mg PO TID PRN #10 tablet 03/29/19 Unknown Rx Ibuprofen [Motrin] 800 mg PO Q8HR PRN #25 tablet 03/29/19 Unknown Rx predniSONE [Deltasone] 20 mg PO DAILY #5 tablet 03/29/19 Unknown Rx Amoxicillin [Amoxicillin TAB] 875 mg PO BID 7 Days #14 tablet 11/13/19 Unknown Rx predniSONE [Deltasone] 3 tab PO QDAY 4 Days #12 tab 11/13/19 Unknown Rx Nitrofurantoin [place]/M-Cryst 100 mg PO Q12HR 7 Days #14 capsule 12/28/19 Unknown Rx [Macrobid CAP] Benzonatate [Tessalon Perles] 100 mg PO Q8HR PRN #30 capsule 09/30/20 Unknown Rx Doxycycline Hyclate 100 mg PO BID 10 Days #20 tablet.dr 09/30/20 Unknown Rx methylPREDNISolone [Medrol 4MG 4 mg PO DAILY 6 Days #1 tab.ds.pk 09/30/20 Unknown Rx DOSEPAK (21 tabs)] Albuterol Sulfate [Proventil Hfa] 1 - 2 puff IH Q6H PRN #1 hfa.aer.ad 09/08/21 Unknown Rx Benzonatate [Tessalon Perles] 100 mg PO Q8HR #30 capsule 09/08/21 Unknown Rx Cetirizine HCl [Zyrtec 10mg tab] 10 mg PO DAILY #30 tablet 09/08/21 Unknown Rx Doxycycline Hyclate [Lymepak] 100 mg PO Q12H #20 tablet 09/08/21 Unknown Rx Ibuprofen [Motrin] 600 mg PO Q8H PRN #30 tablet 09/08/21 Unknown Rx methylPREDNISolone [Medrol 4MG 4 mg PO DAILY #21 tab.ds.pk 09/08/21 Unknown Rx DOSEPAK (21 tabs)] Naproxen 500 mg PO BID PRN #30 tab 03/01/22 Unknown Rx ED Physical Exam - General Limitations: No Limitations General appearance: alert, in no apparent distress - Head Head exam: Present: normocephalic, normal inspection - Eye Eye exam: Present: EOMI Pupils: Present: normal accommodation - ENT ENT exam: Present: mucous membranes moist - Neck Neck exam: Present: normal inspection, full ROM. Absent: tenderness - Respiratory Respiratory exam: Present: normal lung sounds bilaterally. Absent: respiratory distress, wheezes, stridor, chest wall tenderness - Cardiovascular Cardiovascular Exam: Present: regular rate, normal rhythm, normal heart sounds. Absent: systolic murmur, diastolic murmur, rubs, gallop - GI/Abdominal GI/Abdominal exam: Present: soft, normal bowel sounds. Absent: distended, tenderness - Rectal Rectal exam: Present: deferred - Extremities Exam Extremities exam: Present: normal inspection, full ROM, normal capillary refill, pedal edema - Back Exam Back exam: Present: normal inspection. Absent: full ROM, CVA tenderness (R), CVA tenderness (L) - Neurological Exam Neurological exam: Present: alert, oriented X3, CN II-XII intact, normal gait - Psychiatric Psychiatric exam: Present: normal affect, normal mood - Skin Skin exam: Present: warm, dry, intact, normal color. Absent: rash ED Course Vital Signs 03/01/22 00:23 Temperature 98.4 F Pulse Rate 68 Respiratory 16 Rate Blood Pressure 131/58 [Right] O2 Sat by Pulse 99 Oximetry ED Lower Extremity MDM - Radiology Data Radiology results: report reviewed, image reviewed LEFT ANKLE 3 VIEW(S) INDICATION / CLINICAL INFORMATION: possible injury COMPARISON: 08/19/2017 FINDINGS: BONES / JOINT(S): No acute fracture or subluxation. No significant arthritis. Patient is status post plate and screw fixation of the distal fibula. The hardware is well seated. SOFT TISSUES: There is soft tissue swelling about the ankle. ADDITIONAL FINDINGS: None. Signer Name: Marcelo Davis DO Signed: 03/01/2022 12:55 AM Workstation Name: [id number] Transcribed By: ALONSO Dictated By: MARCELO DAVIS DO Electronically Authenticated By: MARCELO DAVIS DO Signed Date/Time: 03/01/2254 DD/ TD/TT: - Medical Decision Making X-ray negative for fracture. Plan Velcro stirrup, offered crutches, NSAIDs as needed pain RICE therapy as needed. Follow-up with your primary care doctor in 2 to 3 days. Patient verbalized agreement and understanding with discharge plan. Patient DC'd home in stable condition at this time. Critical care attestation.: If time is entered above; I have spent that time in minutes in the direct care of this critically ill patient, excluding procedure time. ED Disposition Clinical Impression: Arthralgia of ankle, left Disposition: 01 HOME / SELF CARE / HOMELESS Is pt being admited?: No Does the pt Need Aspirin: No Condition: Stable Instructions: Ankle Sprain, Phase I Rehab-SportsMed, RICE Therapy for Routine Care of Injuries Additional Instructions: roberto carlos medications as prescribed, follow-up with your doctor in 2 to 3 days. Return to emergency department should symptoms worsen. Prescriptions: Naproxen 500 mg PO BID PRN #30 tab PRN Reason: pain swelling Referrals: MARÍA COTTO MD [Staff Physician] - 3-5 Days Forms: Work/School Release Form(ED) Time of Disposition: 05:21
[2022-03-01] MEDS ORDERED: IBUPROFEN 800 MG TAB PO ONE (05:38)
== END 2022-03-01 05:56 | disposition home or self-care (01) ==
LOC: ED 00:16
DX: M25.572 Pain in left ankle and joints of left foot (principal); Z88.1 Allergy status to other antibiotic agents; Z88.5 Allergy status to narcotic agent
CPT/HCPCS: 99283

== ENCOUNTER 2022-05-28 22:55 | Emergency (ER) | payer BC ==
[2022-05-28 22:59] VITALS: BP 138/82
== END 2022-05-29 15:17 | disposition left against medical advice (07) ==
LOC: ED 22:55
DX: M79.601 Pain in right arm (principal); Z53.21 Procedure and treatment not carried out due to patient leaving prior to being seen by health care provider